=== PATIENT | female | born 1945 | race Caucasian/White ===

== ENCOUNTER 2018-04-12 15:05 | Inpatient (IN) | payer MEDICARE, BC ==
[2018-04-12 16:00] LABS: INR 0.91 (0.77-1.02)
[2018-04-12 16:04] LABS: Hematocrit 17 % (35-47); Hemoglobin 5.5 g/dl (12.0-16.0); Mean Corpuscular HGB Conc 33 g/dl (31-36); Mean Corpuscular Hemoglobin 32 pg (27-31); Mean Corpuscular Volume 97 fL (80-97); Mean Platelet Volume 7.7 um3 (7.4-10.4); Platelet Count 321 10^3/ul (150-450); Red Blood Count 1.74 10^6/ul (4.00-5.40); Red Cell Distribution Width 15 % (10.5-15); White Blood Count 6.9 10^3/ul (3.5-10.8)
[2018-04-12 16:11] LABS: EGFR Non-African American 58.9 (>60)
--- NOTE | 2018-04-12 16:29 | ED ---
GI/ HPI - HPI Summary HPI Summary: Pt is a 72 y/o female who presents to the ED c/o tarry stools. She states shes had intermittent rectal bleeding, but denies any red blood in her stool. 1 month ago she had an incidence of rectal bleeding for several days, which then stopped. She also c/o dyspnea upon exertion and voiding, palpitations, abdominal discomfort, and intermittent lightheadedness and dizziness. She notes the SOB is unusual since she hikes every day and is active. Pt denies any CP. Pt was at her PCP today, and had a hemoglobin level of 5.8. She denies ever having low hemoglobin before. PMHx hemorrhoids, which were operated on years ago. Her last colonoscopy was in July 2016, and she had a non-precancerous polyp. Pt also notes she had a blood test done for hereditary colon cancer, which was negative. No PMHx of HLD or HTN. FHx colon cancer. - History of Current Complaint Chief Complaint: EDGIBleed Time Seen by Provider: 04/12/18 15:50 Stated Complaint: ABNORMAL LABS Hx Obtained From: Patient Onset/Duration: Started Weeks Ago - 1 month ago, Still Present Timing: Intermittent Pain Intensity: 0 Location of Pain: Diffuse - Abdomen Associated Signs and Symptoms: Positive: External Hemorrhoid, Black Tarry Stool , Lightheadedness, Abdominal Pain. Negative: Blood-Streaked Stool, Bright Red Blood w/Stool, Blood w/Stool, Chest Pain Aggravating Factor(s): Voiding, Walking/Exertion Alleviating Factor(s): Nothing - Allergy/Home Medications Allergies/Adverse Reactions: Allergies Allergy/AdvReac Type Severity Reaction Status Date / Time ampicillin Allergy Intermediate Rash Verified 04/12/18 17:27 Home Medications: Home Medications Cholecalciferol (Vitamin D3) [Vitamin D3] 1,000 unit PO DAILY 04/12/18 [History Confirmed 04/12/18] Docusate CAP* [Colace Cap*] 100 mg PO DAILY PRN 04/12/18 [History Confirmed 05/20] Ena [place]/Linoleic/Gamoleni [Evening [place] 1,000 mg Sftg] 1,000 mg PO DAILY 04/12/18 [History Confirmed 04/12/18] Ginko/Horsechestnut Compound 40 drop PO BID 04/12/18 [History Confirmed 04/12/18 ] Glucosamine/D3/Boswellia Pauly [Glucosamine Complex] 1 tab PO DAILY 04/12/18 [ History Confirmed 04/12/18] Lutein [Natural Lutein] 20 mg PO DAILY 04/12/18 [History Confirmed 04/12/18] Melatonin 5 mg PO DAILY 04/12/18 [History Confirmed 04/12/18] Omeprazole CAP* [Prilosec CAP* 20 MG] 20 mg PO DAILY 04/12/18 [History Confirmed 04/12/18] Oregano Oil 1 liq TOPICAL QPM 04/12/18 [History Confirmed 04/12/18] Replenish Compound 30 drop PO BID 04/12/18 [History Confirmed 04/12/18] Vata Oil 1 applic TOPICAL BEDTIME 04/12/18 [History Confirmed 04/12/18] PMH/Surg Hx/FS Hx/Imm Hx Cardiovascular History: Reports: Other Cardiovascular Problems/Disorders - REYNAUD/S ONLY IN COLD TEMP Denies: Hx Hypercholesterolemia, Hx Hypertension Musculoskeletal History: Reports: Hx Arthritis - BILAT KNEES, Hx Scoliosis Sensory History: Reports: Hx Cataracts - BILAT, Hx Contacts or Glasses Denies: Hx Hearing Aid Opthamlomology History: Reports: Hx Cataracts - BILAT, Hx Contacts or Glasses - Cancer History Hx Chemotherapy: No Hx Radiation Therapy: No - Surgical History Surgery Procedure, Year, and Place: HEMORRHOIDECTOMY 1989 [facility] [place]. D&C 1989 [facility] [place]. LYMPH NODE BX 1955 R/T CAT SCRATCH FEVER. TONSILLECTOMY AND ADNOIDECTOMY 1951, [facility] Hx Anesthesia Reactions: No Infectious Disease History: Yes Infectious Disease History: Denies: Traveled Outside the [place] in Last 30 Days - Family History Known Family History: Positive: Other - Colon CA, breast CA, parkinson's - Social History Alcohol Use: Rare Hx Substance Use: No Substance Use Type: Reports: None Hx Tobacco Use: Yes Smoking Status (MU): Former Smoker Type: Cigarettes Review of Systems Positive: Palpitations. Negative: Chest Pain Positive: Shortness Of Breath - w/ exertion and voiding Positive: Abdominal Pain, Other - Black tarry stools, NEGATIVE: red blood w/ stool Neurological: Other - Lightheadedness, dizziness All Other Systems Reviewed And Are Negative: Yes Physical Exam - Summary Physical Exam Summary: GENERAL: Patient is a well-developed and nourished F who is lying comfortable in the stretcher. Patient is not in any acute respiratory distress. HEAD AND FACE: Normocephalic EYES: PERRLA, EOMI x 2. EARS: Hearing grossly intact. MOUTH: Oropharynx within normal limits. NECK: Supple, trachea is midline, no adenopathy, no JVD, no carotid bruit. CHEST: Symmetric, no tenderness at palpation LUNGS: Clear to auscultation bilaterally. No wheezing or crackles. CVS: Regular rate and rhythm, S1 and S2 present, no murmurs or gallops appreciated. ABDOMEN: Soft, non-tender. Bowel sounds are normal. No abdominal abnormal pulsations. EXTREMITIES: Full ROM in all major joints, no edema, no cyanosis or clubbing. NEURO: Alert and oriented x 3. No acute neurological deficits. Speech is normal and follows commands. SKIN: Dry and warm : external hemorrhoids, stool was brown without blood Triage Information Reviewed: Yes Vital Signs On Initial Exam: Initial Vitals Temp Pulse Resp BP Pulse Ox 98.4 F 92 18 144/58 100 04/12/18 15:04/12/18 15:09 04/12/18 15:09 04/12/18 15:09 04/12/18 15:09 Vital Signs Reviewed: Yes Diagnostics - Vital Signs Vital Signs Temp Pulse Resp BP Pulse Ox 04/12/18 15:09 98.4 F 92 18 144/58 100 - Laboratory Lab Results: Lab Results 04/12/18 04/12/18 04/12/18 Range/Units 15:40 15:40 15:40 WBC 6.9 (3.5-10.8) 10^3/ul RBC 1.74 L (4.00-5.40) 10^6/ul Hgb 5.5 L* (12.0-16.0) g/dl Hct 17 L (35-47) % MCV 97 (80-97) fL MCH 32 H (27-31) pg MCHC 33 (31-36) g/dl RDW 15 (10.5-15) % Plt Count 321 (150-450) 10^3/ul MPV 7.7 (7.4-10.4) um3 Neut % (Auto) Pending Lymph % (Auto) Pending [place] % (Auto) Pending Eos % (Auto) Pending Baso % (Auto) Pending Absolute Neuts (auto) Pending Absolute Lymphs (auto) Pending Absolute Monos (auto) Pending Absolute Eos (auto) Pending Absolute Basos (auto) Pending Absolute Nucleated RBC Pending Nucleated RBC % Pending INR (Anticoag Therapy) 0.91 (0.77-1.02) Sodium 140 (135-145) mmol/L Potassium 4.0 (3.5-5.0) mmol/L Chloride 109 (101-111) mmol/L Carbon Dioxide 24 (22-32) mmol/L Anion Gap 7 (2-11) mmol/L BUN 19 (6-24) mg/dL Creatinine 0.93 (0.51-0.95) mg/dL Est GFR ( Amer) 71.3 (>60) Est GFR (Non-Af Amer) 58.9 (>60) BUN/Creatinine Ratio 20.4 H (8-20) Glucose 128 H (70-100) mg/dL Calcium 8.8 (8.6-10.3) mg/dL Total Bilirubin 0.30 (0.2-1.0) mg/dL AST 24 (13-39) U/L ALT 14 (7-52) U/L Alkaline Phosphatase 38 (34-104) U/L Total Protein 6.1 L (6.4-8.9) g/dL Albumin 3.9 (3.2-5.2) g/dL Globulin 2.2 (2-4) g/dL Albumin/Globulin Ratio 1.8 (1-3) Result Diagrams: 04/13/18 09:36 04/13/18 05:53 Lab Statement: Any lab studies that have been ordered have been reviewed, and results considered in the medical decision making process. GIGU Course/Dx - Course Course Of Treatment: Pt is a 72 y/o female who presents to the ED c/o tarry stools. She states shes had intermittent rectal bleeding, but denies any red blood in her stool. 1 month ago she had an incidence of rectal bleeding for several days, which then stopped. She also c/o dyspnea upon exertion and voiding , palpitations, abdominal discomfort, and intermittent lightheadedness and dizziness. Pt denies any CP. Pt was at her PCP today, and had a hemoglobin level of 5.8. She denies ever having low hemoglobin before. PMHx hemorrhoids, which were operated on years ago. Her last colonoscopy was in July 2016, and she had a non-precancerous polyp. Pt also notes she had a blood test done for hereditary colon cancer, which was negative. FHx colon cancer. A rectal exam revealed external hemorrhoids, stool was brown without blood. Final dx is anemia. Dr. Mendes accepts pt for admission. - Diagnoses Provider Diagnoses: Anemia - Physician Notifications Discussed Care Of Patient With: Jocelin Mendes Time Discussed With Above Provider: 17:30 Instructed by Provider To: Admit As Inpatient Discharge - Sign-Out/Discharge Documenting (check all that apply): Patient Departure - Admit - Discharge Plan Condition: Stable Disposition: ADMITTED TO [facility] - Billing Disposition and Condition Condition: STABLE Disposition: Admitted to [facility] - Attestation Statements Document Initiated by Lamaribe: Yes Documenting Scribe: Rhonda Morgan Provider For Whom Lamaribe is Documenting (Include Credential): Raman Lemus MD Scribe Attestation: Rhonda Sotomayor, scribed for Raman Lemus MD on 04/13/18 at 1727. Scribe Documentation Reviewed: Yes Provider Attestation: The documentation as recorded by the Rhonda moreira accurately reflects the service I personally performed and the decisions made by , Raman Lemus MD
[2018-04-12 16:40] LABS: ABS Basophils 0.1 10^3/ul (0-0.2); ABS Eosinophils 0.2 10^3/ul (0-0.6); ABS Lymphocytes 1.2 10^3/ul (1.0-4.8); ABS Monocytes 0.6 10^3/ul (0-0.8); ABS Neutrophils 4.8 10^3/ul (1.5-7.7); ABS Nucleated RBC 0 10^3/ul; Eosinophil % 2.4 % (0-6); Lymphocyte % 17.3 % (25-47); Nucleated Red Blood Cells % 0
[2018-04-12] MEDS ORDERED: NS 0.9% 1000 ML* 1,000 ML IV SCH ×2 (17:30→18:23)
[2018-04-12] MEDS ORDERED: Pantoprazole IV* 40 MG IV ONE (17:55)
--- NOTE | 2018-04-12 19:18 | PN ---
Hospitalist Progress Note Date of Service: 04/12/[address] Bowens who will plan for upper endoscopy tomorrow. NPO after midnight.
[2018-04-12] MEDS: Pantoprazole IV* 80 MG in NS 0.9% 250 ML* 250 ML IVPB SCH (19:22)
--- NOTE | 2018-04-12 21:06 | HP ---
HISTORY AND PHYSICAL: DATE OF ADMISSION: 04/12/18 ATTENDING PHYSICIAN: Dr. Nguyễn * (report dictated by Abril Mahoney, JOE). PRIMARY CARE PROVIDER: Dr. South. CHIEF COMPLAINT: The patient sent by primary care office for anemia. HISTORY OF PRESENT ILLNESS: Ms. Fraser is a 72-year-old female with a past medical history of hemorrhoids and migraines, who presented to the emergency department by recommendation by her primary care provider after she had follow- up labs today for anemia. The patient went to have a followup lab as recommendation from her primary care provider to monitor her hemoglobin and hematocrit as last month around 03/12/18, she reported bright red blood per rectum and on her evaluation it was noted that most likely the source was hemorrhoidal bleeding. The recommendation was to have a followup CBC in a month in which she went to the lab today, had the followup CBC and was notified by her primary care provider when it returned to show a hemoglobin of 5.8 and a hematocrit of 18. She came to the emergency department. On recheck this afternoon, her hemoglobin is 5.5 with a hematocrit of 17. The patient reports that over the past month, she has had some bright red blood per rectum thinking that this was hemorrhoidal bleeding. She reports this to be intermittent and she also reported intermittent dark stools. She reported these dark stools to be formed and denied melena. She then reports over the past couple of weeks, this appears to have improved but approximately a week ago has increased in frequency with bright red blood per rectum as well as dark "smelly" stools. She also reports in the last several weeks she has had intermittent abdominal pain in her epigastric region mostly at night, reporting she felt that this was just normal abdominal pain and did not think much of it. She does report that she did have a stool over the weekend that did turn the toilet bowl water a dark red color. Her last stool was this morning at 7 a.m. which she reports as dark, black, soft, and formed and di not turn the toilet water red. She denies any emesis or nausea. She currently denies any abdominal pain. She denies upper GI bleed in the past, but does report she has had hemorrhoidal bleeding previously. She reports that over the past couple of weeks, she has had "extreme fatigue" and some increased shortness of breath with exertion. She denies chest pain. She denies dizziness at rest or with position change. She does report that her blood pressure has been on the lower side with systolic blood pressures around 115 and reports that she has noted that her heart rate on her Fitbit has been a little bit elevated in the low 100s. She reports that her normal heart rate is low 90s. Currently, she offers no complaints other than feeling very fatigued. Per the patient, she rarely has to see her primary care provider. She reports herself to be healthy. She reports she mostly takes ayurvedic supplementation and follows with the ayurvedic provider in [place], [place]. She reports that some of her herbal supplements are taken on an empty stomach. She denies any NSAID use. PAST MEDICAL HISTORY: 1. Ophthalmic migraine. 2. History of rectal bleeding in July 2016 in which she underwent a colonoscopy with biopsy removal of a distant rectal polyp. PAST SURGICAL HISTORY: Status post tonsillectomy. CURRENT MEDICATIONS: 1. bone/joint path-oil 2 drops topical q.p.m. 2. Vata Oil 1 application topical at bedtime. 3. Oregano Oil 1 liquid topical q.p.m. 4. Replenish Compound 30 drops p.o. b.i.d. 5. Ginkgo/Horse chestnut Compound 40 drops p.o. b.i.d. 6. Melatonin 5 mg p.o. daily. 7. Glucosamine/D3/Boswellia Pauly 1 tab p.o. daily. 8. Lutein 20 mg p.o. daily. 9. Evening [place] oil 1000 mg p.o. daily. 10. Vitamin D3 of 1000 units p.o. daily. 11. Colace 100 mg p.o. daily p.r.n. 12. Omeprazole 20 mg p.o. daily. ALLERGIES: AMPICILLIN. FAMILY HISTORY: Colon cancer. SOCIAL HISTORY: Denies history of tobacco abuse. No alcohol use. Currently lives at home with her , Mars Fraser, who is her healthcare proxy. His number is [phone]. REVIEW OF SYSTEMS: A 14-point review of systems was performed. All the pertinent positives and negatives are mentioned in the history of present illness. Otherwise, are negative. PHYSICAL EXAMINATION GENERAL APPEARANCE: A 72-year-old female, alert and oriented x3, appears pale, in no acute distress. VITAL SIGNS: Temperature 98.4, heart rate 92, respirations 18, O2 sat 100% on room air, blood pressure 144/58. HEENT: Head is normocephalic, atraumatic. Pupils are equal and reactive to light. Oropharynx is clear. Moist mucous membranes. NECK: Supple. LUNGS: Clear to auscultation bilaterally. Good aeration throughout. CARDIAC: S1, S2. Regular rate and rhythm. No murmur, rub, or gallop appreciated. No lower extremity edema noted. ABDOMEN: Soft, nontender, nondistended. Normal bowel sounds throughout. EXTREMITIES: Moves all extremities. Strength is 5/5 throughout. NEURO: Cranial nerves II through XII are grossly intact. No focal deficits noted. LABORATORY DATA AND DIAGNOSTIC STUDIES: WBC is 6.9, RBC 1.74, Hgb 5.4, Hct 17 , MCV 97, MCH 32, MCHC 33, RDW 15, platelet count 321,000. INR is 0.91. Sodium 140, potassium 4.0, chloride 109, carbon dioxide 24, anion gap 7, BUN 19 , creatinine 0.94, glucose 128, calcium 8.8. Total bilirubin 0.30. AST 24, ALT 14, alkaline phosphatase 38. Total protein 6.1, albumin 3.9. ASSESSMENT AND PLAN: Ms. Fraser is a 72-year-old female with no significant past medical history other than she did have lower GI bleeding in 2016 in which she underwent a colonoscopy and did have a polyp removed at that time. She presents today to the emergency department after routine followup blood work by her PCP for report of hemorrhoidal bright red blood bleeding as well as dark stool approximately a month ago, found to have a hemoglobin of 5.5 today. 1. GI bleed. The patient will be admitted to the hospitalist service to the telemetry. She is hemodynamically stable. Will place 2 large bore IVs. obtain orthostatic vital signs. Start normal saline at 125 mL an hour. The emergency room provider has already ordered 2 units of packed red blood cells. I will start the patient on a Protonix drip. Consult GI. N.p.o. after midnight with a potential upper endoscopy tomorrow. She can have clears this evening; however , I did discuss with the patient that it is possible the GI physician may want to do a colonoscopy as well. We will trend hemoglobin and hematocrit q.6 hours. Monitor on telemetry. I did discuss with the patient that it is possible that some of her herbal supplements taken on empty stomach possibly could cause a gastric ulcer and to hold off on restarting these medications until this is further investigated. 2. Borderline hypertension. The patient reports that her normal systolic blood pressure is around 140. It is noted that her blood pressure currently is 144/58. This should be monitored throughout the hospitalization. I did discuss with the patient that the goal for her blood pressure should be systolically under 130. 3. DVT prophylaxis. Hold in the setting of GI bleed. 4. Code status. Full code. 5. Hospital status. Observation to telemetry. TIME SPENT: Approximately 60 minutes were spent on this admission. ABRIL MAHONEY, JOE [id number]/CPS #: [id number] ROSA M
[2018-04-13 01:24] LABS: Hematocrit 23 % (35-47); Hemoglobin 7.6 g/dl (12.0-16.0)
[2018-04-13] MEDS: Pantoprazole IV* 80 MG in NS 0.9% 250 ML* 250 ML IVPB SCH ×2 (04:16→15:30)
[2018-04-13 06:18] LABS: ABS Basophils 0.1 10^3/ul (0-0.2); ABS Eosinophils 0.1 10^3/ul (0-0.6); ABS Monocytes 0.8 10^3/ul (0-0.8); ABS Neutrophils 6.7 10^3/ul (1.5-7.7); ABS Nucleated RBC 0 10^3/ul; Eosinophil % 1.3 % (0-6); Hematocrit 21 % (35-47); Hemoglobin 7.3 g/dl (12.0-16.0); Lymphocyte % 11.8 % (25-47); Mean Corpuscular HGB Conc 34 g/dl (31-36); Mean Corpuscular Hemoglobin 32 pg (27-31); Mean Corpuscular Volume 92 fL (80-97); Mean Platelet Volume 7.7 um3 (7.4-10.4); Nucleated Red Blood Cells % 0.1; Platelet Count 270 10^3/ul (150-450); Red Blood Count 2.31 10^6/ul (4.00-5.40); Red Cell Distribution Width 15 % (10.5-15); White Blood Count 8.7 10^3/ul (3.5-10.8)
[2018-04-13 06:32] LABS: EGFR Non-African American 68.1 (>60)
--- NOTE | 2018-04-13 07:48 | PN ---
Subjective - Subjective Reason for Note: Progress Note History: Radha Fraser presented with symptoms of anemia, hemorrhoidal bleeding and melena. I reviewed her presentation with the patient and with Mary Strauss NP's admitting history and physical. She has a strong FH of colon cancer (maternal grandmother, 3 siblings). She had a colon polyp removed by Dr. Wallace Bowens 2 years ago and he told her this was the last one she would require. She had hemorrhoids banded previously by Dr. Mcmahan. Recently, she had rectal bleeding and was found to be mildly anemic by Musa Prasad NP who referred her to Dr. Alcira Fabian for general surgery. Her report was she saw a small blood vessel at the base of an anal fissure, along with some external and internal hemorrhoids that looked benign. She though this was the source of the bleeding. She recommended conservative measures for anal fissure. Clearly, she continued to bleed and had bright red blood and some melena. She was symptomatic from anemia when she presented. She tolerated the 2 units of PRCBs and has no symptoms this morning - she has had no further anal bleeding. Active Problems: Active Problems Anal fissure (Acute) K60.2 Anemia (Acute) D64.9 Bleeding hemorrhoids (Acute) K64.9 Melena (Acute) K92.1 Family history of colon cancer (Chronic) Z80.0 Raynauds phenomenon (Chronic) I73.00 Current Medications: Current Medications Pantoprazole Sodium 80 mg/ (Sodium Chloride) 250 mls @ 25 mls/hr IVPB Q10H [facility] Last Admin: 04/13/18 04:16 Dose: 25 mls/hr Home Medications: Home Medications Medication Instructions Recorded Confirmed Type Kelsi Bone/Joint Path Oil 2 drop TOPICAL QPM /11/1604/12/18 History Cholecalciferol (Vitamin D3) 1,000 unit PO DAILY 04/12/18 04/12/18 History [Vitamin D3] Docusate CAP* [Colace Cap*] 100 mg PO DAILY PRN 04/12/18 04/12/18 History Ena [place]/Linoleic/Gamoleni 1,000 mg PO DAILY 04/12/18 04/12/18 History [Evening [place] 1,000 mg Sftg] Ginko/Horsechestnut Compound 40 drop PO BID 04/12/18 04/12/18 History Glucosamine/D3/Boswellia Pauly 1 tab PO DAILY 04/12/18 04/12/18 History [Glucosamine Complex] Lutein [Natural Lutein] 20 mg PO DAILY 04/12/18 04/12/18 History Melatonin 5 mg PO DAILY 04/12/18 04/12/18 History Omeprazole CAP* [Prilosec CAP* 20 20 mg PO DAILY 04/12/18 04/12/18 History MG] Oregano Oil 1 liq TOPICAL QPM 04/12/18 04/12/18 History Replenish Compound 30 drop PO BID 04/12/18 04/12/18 History Vata Oil 1 applic TOPICAL BEDTIME 04/12/18 04/12/18 History Allergies: Allergies Allergy/AdvReac Type Severity Reaction Status Date / Time ampicillin Allergy Intermediate Rash Verified 04/12/18 17:27 Objective - Vital Signs Vital Signs: Vital Signs 04/12/18 04/12/18 04/12/18 15:09 17:52 18:06 Temperature 98.4 F 98.7 F Pulse Rate 92 94 Respiratory 18 20 18 Rate Blood Pressure 144/58 114/67 (mmHg) O2 Sat by Pulse 100 100 Oximetry 04/12/18 04/12/18 04/12/18 18:35 18:45 18:54 Temperature 98.8 F 98.8 F Pulse Rate 99 97 97 Respiratory 18 16 16 Rate Blood Pressure 132/68 111/59 111/59 (mmHg) O2 Sat by Pulse 100 100 100 Oximetry 04/12/18 04/12/18 04/13/18 19:05 23:51 03:25 Temperature 98.3 F 98.5 F 98.8 F Pulse Rate 94 93 90 Respiratory 20 18 20 Rate Blood Pressure 125/52 122/61 145/54 (mmHg) O2 Sat by Pulse 93 96 100 Oximetry 04/13/18 03:30 Temperature Pulse Rate 90 Respiratory 24 Rate Blood Pressure 145/54 (mmHg) O2 Sat by Pulse 98 Oximetry - Intake and Output Intake and Output: Intake & Output 04/10/18 04/11/18 04/12/18 04/13/18 11:59 11:59 11:59 11:59 Intake Total 597 Balance 597 Weight 144 lb 3.2 oz Intake: IV Fluids 227 Oral 370 Other: Estimated Void Medium # Bowel Movements 1 Estimated Stool Amount Large # Voids 1 ADLs: Meal Record Start: 04/12/18 17: 52 Freq: DAILY@0900,1400,1800 Status: Active Protocol: Created 04/12/18 17:52 System (Rec: 04/12/18 17:52 System [id number]) Document 04/12/18 18:00 [id number] (Rec: 04/12/18 21:15 [id number]) Intake and Output Start: 04/12/18 15: 12 Freq: Status: Cancelled Protocol: Created 04/12/18 15:12 System (Rec: 04/12/18 15:12 System [id number]) Intake and Output Start: 04/12/18 17: 21 Freq: 06,14,2200 Status: Active Protocol: Created 04/12/18 17:21 [id number] (Rec: 04/12/18 17:21 BK [email or web address]) Document 04/12/18 22:00 [id number] (Rec: 04/12/18 22:54 [id number] TELE-C13) Document 04/13/18 06:00 [id number] (Rec: 04/13/18 06:35 [id number] TELE-C34) Intake and Output Start: 04/12/18 17: 52 Freq: DAILY@0600,1400,2200 Status: Active Protocol: Created 04/12/18 17:52 System (Rec: 04/12/18 17:52 System [email or web address]-C09) Document 04/12/18 22:00 [id number] (Rec: 04/12/18 22:54 [id number]-C13) - Physical Exam General: No Cyanosis, Yes Anemia, No Jaundice, No Clubbing Lungs and Chest: Yes: Chest Expansion Full, Chest Expansion Symetrica, Percussion Note Resonant, Vessicular Breath Sounds. No: Crackles, Wheezes, Respiratory Distress, Use of Accessory Muscles Heart Rate and Rhythm: Regular Additional Cardiovascular: Yes: Normal Heart Sounds. No: Heart Murmur, Pedal Edema Abdominal Exam: Yes: Soft, Bowel Sounds Present. No: Distention, Abdominal Mass , Hepatomegaly, Abdominal Tenderness, Guarding, Rebound Tenderness - Neuro Orientation: A/O x3 Speech: Normal Results - Results Lab Results: Laboratory Results - last 24 hr 04/12/18 04/12/18 04/12/18 15:40 15:40 15:40 WBC 6.9 RBC 1.74 L Hgb 5.5 L* Hct 17 L MCV 97 MCH 32 H MCHC 33 RDW 15 Plt Count 321 MPV 7.7 Neut % (Auto) 70.0 Lymph % (Auto) 17.3 L Garrett % (Auto) 9.0 H Eos % (Auto) 2.4 Baso % (Auto) 1.3 Absolute Neuts (auto) 4.8 Absolute Lymphs (auto) 1.2 Absolute Monos (auto) 0.6 Absolute Eos (auto) 0.2 Absolute Basos (auto) 0.1 Absolute Nucleated RBC 0 Nucleated RBC % 0 INR (Anticoag Therapy) 0.91 Sodium 140 Potassium 4.0 Chloride 109 Carbon Dioxide 24 Anion Gap 7 BUN 19 Creatinine 0.93 Est GFR ( Amer) 71.3 Est GFR (Non-Af Amer) 58.9 BUN/Creatinine Ratio 20.4 H Glucose 128 H Calcium 8.8 Total Bilirubin 0.30 AST 24 ALT 14 Alkaline Phosphatase 38 Total Protein 6.1 L Albumin 3.9 Globulin 2.2 Albumin/Globulin Ratio 1.8 Blood Type Antibody Screen Crossmatch 04/12/18 04/13/18 04/13/18 15:43 01:17 05:53 WBC 8.7 RBC 2.31 L Hgb 7.6 L 7.3 L Hct 23 L 21 L MCV 92 MCH 32 H MCHC 34 RDW 15 Plt Count 270 MPV 7.7 Neut % (Auto) 77.2 Lymph % (Auto) 11.8 L Garrett % (Auto) 9.0 H Eos % (Auto) 1.3 Baso % (Auto) 0.7 Absolute Neuts (auto) 6.7 Absolute Lymphs (auto) 1.0 Absolute Monos (auto) 0.8 Absolute Eos (auto) 0.1 Absolute Basos (auto) 0.1 Absolute Nucleated RBC 0 Nucleated RBC % 0.1 INR (Anticoag Therapy) Sodium Potassium Chloride Carbon Dioxide Anion Gap BUN Creatinine Est GFR ( Amer) Est GFR (Non-Af Amer) BUN/Creatinine Ratio Glucose Calcium Total Bilirubin AST ALT Alkaline Phosphatase Total Protein Albumin Globulin Albumin/Globulin Ratio Blood Type A Positive Antibody Screen Negative Crossmatch See Detail 04/13/18 05:53 WBC RBC Hgb Hct MCV MCH MCHC RDW Plt Count MPV Neut % (Auto) Lymph % (Auto) Garrett % (Auto) Eos % (Auto) Baso % (Auto) Absolute Neuts (auto) Absolute Lymphs (auto) Absolute Monos (auto) Absolute Eos (auto) Absolute Basos (auto) Absolute Nucleated RBC Nucleated RBC % INR (Anticoag Therapy) Sodium 140 Potassium 3.9 Chloride 111 Carbon Dioxide 24 Anion Gap 5 BUN 13 Creatinine 0.82 Est GFR ( Amer) 82.5 Est GFR (Non-Af Amer) 68.1 BUN/Creatinine Ratio 15.9 Glucose 104 H Calcium 8.3 L Total Bilirubin AST ALT Alkaline Phosphatase Total Protein Albumin Globulin Albumin/Globulin Ratio Blood Type Antibody Screen Crossmatch Assessment - Problem List Assessment: Patient Problems Anal fissure (Acute) Anemia (Acute) Bleeding hemorrhoids (Acute) Melena (Acute) Family history of colon cancer (Chronic) Raynauds phenomenon (Chronic) Plan: Anal fissure (Acute)/Bleeding hemorrhoids (Acute) -It is not clear to me if this degree of hemorrhage is all secondary to hemorrhoidal or anal fissure bleeding. This certainly can happen. However, we should evaluate this carefully. I am going to ask for a general surgical opinion for the rectal area. Melena (Acute) She is scheduled for an EGD to ensure she is not coincidentally bleeding from an upper GI source to cause what may be melena Anemia (Acute) She remains anemic after 2 units PRBCs. I will check her ED blood work for ferritin/iron panel. She may require an iron infusion or even further transfusions. Family history of colon cancer (Chronic) Her mother is well at 101 years, but other members of her family have had this. She has been worked up by Dr. Gibbs, but nothing was found. I will obtain the report from Dr. Gibbs Raynauds phenomenon (Chronic) secondary diagnosis. I discussed the above with the patient. She doesn't want either further transfusion or an iron infusion until we have some further clarity for the cause of her bleeding or if her hemoglobin goes down again from further bleeding.
[2018-04-13 10:08] LABS: Hematocrit 21 % (35-47); Hemoglobin 7.2 g/dl (12.0-16.0)
[2018-04-13] MEDS ORDERED: fentaNYL* 50 MCG/ML 2 ML VIAL (100 MCG VIAL) ONE (12:59)
[2018-04-13] MEDS ORDERED: Midazolam* 1 MG/ML 10 ML VIAL (10 MG) ONE (12:59)
[2018-04-13] MEDS ORDERED: PEG 3000 GI LAVAGE* 1 GALLON PO ONE (16:00)
--- NOTE | 2018-04-13 19:06 | CONS ---
GASTROENTEROLOGY CONSULT: DATE: 04/13/18 CONSULTING PHYSICIAN: Mukesh Alvarado. REASON FOR CONSULT: Hemoglobin of 5.3, MCV 97, platelets 321 in a woman who has been passing either black material or dark bloody stool sporadically over the last 6 to 7 weeks. She states she last felt well about 3 weeks ago, but actually references that 6 weeks ago, she suddenly developed bleeding from the rectum where she was seeing dark clotted material, but also passing black material, even after 3 to 4 days and at the end of that, she saw mid-level provider in Dr. South's office. At that time, she was feeling okay. Nothing happened for a month and then, she has more bleeding around 04/04/18. She began to feel tired when walking. She likes to hike on trails. She had had a hemorrhoidectomy 30 years ago and therefore saw Dr. Fabian in consultation 3 wks ago who diagnosed an anal fissure which was healing. She had a followup blood count yesterday and this showed hemoglobin of 5.4 and she was therefore summoned to the hospital. Indirectly asking about omeprazole, which is listed as one of her medicines, it comes out that she has been having a burning abdominal distress at night for a couple of months. She had tried Pepto-Bismol for it without success and Tums and then borrowed her 's omeprazole 2 nights running thinking it was a little bit helpful. It is not one of her prescribed medications. She denies taking any prescription medicines for her stomach ever. She was puzzled about my question regarding migraine (on her problem list) and then her reminds her that her "sparkles" are migraines. She had a colonoscopy with a good prep 07/30/16. She takes lots of supplements. PAST MEDICAL HISTORY: 1. Ophthalmic migraine. 2. History of hemorrhoids. 3. History of tonsillectomy. MEDICATIONS: About a dozen supplements and apparently nothing via prescription. She does take Colace. ALLERGIES: AMPICILLIN. FAMILY HISTORY: Colon cancer. 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 She is an active hiker. REVIEW OF SYSTEMS: No history of IN, arrhythmias, syncope, TB, hepatitis, jaundice, renal stones, hematuria, CVA, seizures. PHYSICAL EXAM: She is a pale, older woman, in no distress, stating she has no abdominal pain at this time. HEENT exam shows no icterus. She has no adenopathy. Her lungs are clear and heart sounds are regular. The abdomen is symmetric, soft, and nontender. Extremities showed no edema. Rectal deferred. LABORATORY DATA: On admission, hemoglobin 5.4, hematocrit 17, MCV 97, platelets 321. INR 0.91. BUN 19, creatinine 0.94. ALT 14, alkaline phosphatase 38, albumin 3.9. IMPRESSION: This 72-year-old woman has a history of a month or two of intermittent bleeding, which is described mostly as red blood, passed in a fashion that she assumed was hemorrhoidal and now has a subacute severe normochromic anemia. She, however, has upper abdominal pain, which seemed to respond to omeprazole and also passes black stools and had a colonoscopy 20 months ago with a good prep that was essentially normal. Upper endoscopy will proceed first. [id number]/[facility] #: [id number] [facility]PITALAlvina
[2018-04-13 21:13] LABS: Hematocrit 25 % (35-47); Hemoglobin 8.2 g/dl (12.0-16.0)
--- NOTE | 2018-04-14 00:15 | PRO ---
DATE: 04/13/18 - ROOM #446 REFERRING PHYSICIAN: Mukesh South.* PROCEDURE: Upper gastrointestinal endoscopy and flexible sigmoidoscopy. INDICATION: This 72-year-old woman has noted blood in her stool or black stool. She felt weak and came to the emergency room, and hemoglobin was 5.4, MCV 97. Overnight, she was transfused 2 units. She had a normal appearing stool yesterday with no blood and then today said she had a "enormous normal appearing bowel movement." It was brown, nonpainful and without any blood. BUN was 17 on admission. ENDOSCOPIST: Dr. Bowens. MEDICATIONS: Midazolam 4, fentanyl 25. FINDINGS: She was positioned on her side, and was comfortable and conscious sedation administered in incremental doses. She tolerated the exam very well, and her vitals remained stable. EGD: Larynx - limited views, symmetric. Esophagus - easily entered. The mucosa is normal in the upper, mid, and lower esophagus with the EG junction little bit loose at 40. There were no Dunbar's changes, erosions, or scars and no fundic prolapse. Stomach - generally normal mucosa in the cardia, fundus, body, and antrum. There were no chronic changes or scarring. Duodenum - the pylorus, bulb, and second through fourth portions appear normal. FLEXIBLE SIGMOIDOSCOPY: Digital rectal is unremarkable. External inspection is normal. The adult scope viewed brown formed stool in the rectum and up to the rectosigmoid. 80% to 90% of the rectal surface was seen and was normal. Retroflexion showed some slightly prominent vessels, but they were normal and clearly there were no major bulging hemorrhoids. There were no polyps. The scar from prior hemorrhoidectomy seen. The scope was then advanced through the distal mid and upper sigmoid to about 50 cm. There was no bleeding and the mucosa appeared normal. Diverticulosis if any was minimal. IMPRESSION: 1. Normal EGD. 2. Normal flexible sigmoidoscopy, and the scar from prior hemorrhoidectomy. 3. Anemia and gastrointestinal bleeding - source unclear and she will be prepped for colonoscopy. [id number]/[facility] #: [id number] [facility]
[2018-04-14] MEDS: Pantoprazole IV* 80 MG in NS 0.9% 250 ML* 250 ML IVPB SCH ×2 (03:06→11:26)
--- NOTE | 2018-04-14 08:09 | PN ---
Subjective - Subjective Reason for Note: Progress Note History: She is currently having a colon prep and is passing clear fluid without any blood. She has no blood in her stool. She is concerned about ovarian cancer as she has a strong family history and wonders about her abdomen being more distended. She is in no pain. Active Problems: Active Problems Anal fissure (Acute) K60.2 Anemia (Acute) D64.9 Bleeding hemorrhoids (Acute) K64.9 Melena (Acute) K92.1 Family history of colon cancer (Chronic) Z80.0 Family history of ovarian cancer (Chronic) Z80.41 Raynauds phenomenon (Chronic) I73.00 Current Medications: Current Medications Pantoprazole Sodium 80 mg/ (Sodium Chloride) 250 mls @ 25 mls/hr IVPB Q10H [facility] Last Admin: 04/14/18 03:06 Dose: Not Given Lactated Ringer's (Lactated Ringers 1000 Ml Bag*) 1,000 mls @ 75 mls/hr IV PER RATE [facility] Last Admin: 04/13/18 08:43 Dose: 75 mls/hr Home Medications: Home Medications Medication Instructions Recorded Confirmed Type Kelsi Bone/Joint Path Oil 2 drop TOPICAL QPM 12/05/15 04/12/18 History Cholecalciferol (Vitamin D3) 1,000 unit PO DAILY 04/12/18 04/12/18 History [Vitamin D3] Docusate CAP* [Colace Cap*] 100 mg PO DAILY PRN 04/12/18 04/12/18 History Ena [place]/Linoleic/Gamoleni 1,000 mg PO DAILY 04/12/18 04/12/18 History [Evening [place] 1,000 mg Sftg] Ginko/Horsechestnut Compound 40 drop PO BID 04/12/18 04/12/18 History Glucosamine/D3/Boswellia Pauly 1 tab PO DAILY 04/12/18 04/12/18 History [Glucosamine Complex] Lutein [Natural Lutein] 20 mg PO DAILY 04/12/18 04/12/18 History Melatonin 5 mg PO DAILY 04/12/18 04/12/18 History Omeprazole CAP* [Prilosec CAP* 20 20 mg PO DAILY 04/12/18 04/12/18 History MG] Oregano Oil 1 liq TOPICAL QPM 04/12/18 04/12/18 History Replenish Compound 30 drop PO BID 04/12/18 04/12/18 History Vata Oil 1 applic TOPICAL BEDTIME 04/12/18 04/12/18 History Allergies: Allergies Allergy/AdvReac Type Severity Reaction Status Date / Time ampicillin Allergy Intermediate Rash Verified 04/12/18 17:27 Objective - Vital Signs Vital Signs: Vital Signs 04/13/18 04/13/18 04/13/18 11:43 16:09 19:18 Temperature 98.2 F 98.1 F Pulse Rate 88 75 85 Respiratory 19 20 18 Rate Blood Pressure 128/68 117/71 138/71 (mmHg) O2 Sat by Pulse 97 96 96 Oximetry 04/13/18 04/14/18 04/14/18 20:00 00:03 01:46 Temperature 98.9 F Pulse Rate 81 Respiratory 18 20 Rate Blood Pressure 136/71 (mmHg) O2 Sat by Pulse 100 96 Oximetry 04/14/18 03:20 Temperature 98.7 F Pulse Rate 83 Respiratory 20 Rate Blood Pressure 131/72 (mmHg) O2 Sat by Pulse 94 Oximetry - Intake and Output Intake and Output: Intake & Output 04/11/18 04/12/18 04/13/18 04/14/18 11:59 11:59 11:59 11:59 Intake Total 597 300 Output Total 300 Balance 597 0 Weight 144 lb 3.2 oz 141 lb 3.2 oz Intake: IV Fluids 227 225 IVPB 75 Oral 370 0 Output: Urine 300 Other: Estimated Void Medium # Bowel Movements 1 0 Estimated Stool Amount Large # Voids 1 ADLs: Meal Record Start: 04/12/18 17: 52 Freq: DAILY@0900,1400,1800 Status: Active Protocol: Created 04/12/18 17:52 System (Rec: 04/12/18 17:52 System [email or web address]) Document 04/12/18 18:00 [id number] (Rec: 04/12/18 21:15 [id number] TELE-C13) Document 04/13/18 09:00 [id number] (Rec: 04/13/18 10:53 [id number] TELE-C01) Document 04/13/18 14:00 [id number] (Rec: 04/13/18 15:10 [id number] TELE-C05) Document 04/13/18 20:45 [id number] (Rec: 04/13/18 20:45 [id number] TELE-C01) Intake and Output Start: 04/12/18 15: 12 Freq: Status: Cancelled Protocol: Created 04/12/18 15:12 System (Rec: 04/12/18 15:12 System [id number]) Intake and Output Start: 04/12/18 17: 21 Freq: 06,14,2200 Status: Active Protocol: Created 04/12/18 17:21 [id number] (Rec: 04/12/18 17:21 BKG [id number]) Document 04/12/18 22:00 [id number] (Rec: 04/12/18 22:54 [id number] TELE-C13) Document 04/13/18 06:00 [id number] (Rec: 04/13/18 06:35 [id number] TELE-C34) Document 04/13/18 14:00 [id number] (Rec: 04/13/18 15:10 [id number] TELE-C05) Document 04/13/18 21:56 [id number] (Rec: 04/13/18 21:56 [id number] TELE-C01) Document 04/14/18 06:00 [id number] (Rec: 04/14/18 06:21 [id number] TELE-C34) Intake and Output Start: 04/12/18 17: 52 Freq: DAILY@0600,1400,2200 Status: Active Protocol: Created 04/12/18 17:52 System (Rec: 04/12/18 17:52 System TELE-C09) Document 04/12/18 22:00 [id number] (Rec: 04/12/18 22:54 [id number] TELE-C13) - Physical Exam General Physical Exam Comment: Warm and well perfused, in acute distress, hemodynamically stable General: No Cyanosis, Yes Anemia, No Jaundice, No Clubbing Lungs and Chest: Yes: Chest Expansion Full, Chest Expansion Symetrica, Percussion Note Resonant, Vessicular Breath Sounds. No: Crackles, Wheezes Heart Rate and Rhythm: Regular Additional Cardiovascular: Yes: Normal Heart Sounds. No: Heart Murmur, Pedal Edema Abdominal Exam: Yes: Soft, Bowel Sounds Present. No: Distention - No evidence of ascites., Abdominal Mass, Hepatomegaly, Abdominal Tenderness, Guarding, Rebound Tenderness Results - Results Lab Results: Laboratory Results - last 24 hr 04/12/18 04/12/18 04/13/18 15:40 15:43 09:36 Hgb 7.2 L Hct 21 L Sodium 140 Potassium 4.0 Chloride 109 Carbon Dioxide 24 Anion Gap 7 BUN 19 Creatinine 0.93 Est GFR ( Amer) 71.3 Est GFR (Non-Af Amer) 58.9 BUN/Creatinine Ratio 20.4 H Glucose 128 H Calcium 8.8 Iron TNP TIBC 426 % Saturation TNP Unsat Iron Binding TNP Transferrin 304 Ferritin 18.9 Total Bilirubin 0.30 AST 24 ALT 14 Alkaline Phosphatase 38 Total Protein 6.1 L Albumin 3.9 Globulin 2.2 Albumin/Globulin Ratio 1.8 Blood Type A Positive Antibody Screen Negative Crossmatch See Detail 04/13/18 04/13/18 09:36 21:00 Hgb 8.2 L Hct 25 L Sodium Potassium Chloride Carbon Dioxide Anion Gap BUN Creatinine Est GFR ( Amer) Est GFR (Non-Af Amer) BUN/Creatinine Ratio Glucose Calcium Iron 54 TIBC % Saturation Unsat Iron Binding Transferrin Ferritin Total Bilirubin AST ALT Alkaline Phosphatase Total Protein Albumin Globulin Albumin/Globulin Ratio Blood Type Antibody Screen Crossmatch Assessment - Problem List Assessment: Patient Problems Anal fissure (Acute) Anemia (Acute) Bleeding hemorrhoids (Acute) Melena (Acute) Family history of colon cancer (Chronic) Family history of ovarian cancer (Chronic) Raynauds phenomenon (Chronic) Plan: Anal fissure (Acute) Bleeding hemorrhoids (Acute) Melena (Acute) I reviewed Dr. Wallace Bowens's consultation and procedure note. There is no clear site of bleeding at present. He wishes to complete the endoscopy series with a colonoscopy today. Since there was no increase of her BUN it is likely that this bleeding is distal to the duodenum. She could have bleeding from an AVM in the small intestine Anemia (Acute) Her hemoglobin/hematocrit are stable Family history of colon cancer (Chronic) Dr. Wallace Bowens is being very cautious here. Family history of ovarian cancer (Chronic) She is anxious about this, I will check her CA125 for reassureance Raynauds phenomenon (Chronic) I discussed the above with the patient and her . She agrees with this management plan.
[2018-04-14] MEDS ORDERED: fentaNYL* 50 MCG/ML 2 ML VIAL (100 MCG VIAL) ONE (12:17)
[2018-04-14] MEDS ORDERED: Midazolam* 1 MG/ML 10 ML VIAL (10 MG) ONE (12:17)
[2018-04-14] MEDS ORDERED: Pantoprazole IV* 80 MG in NS 0.9% 250 ML* 250 ML IVPB SCH (15:00)
[2018-04-15 07:35] LABS: EGFR Non-African American 58.2 (>60)
--- NOTE | 2018-04-15 07:43 | PN ---
Subjective - Subjective Reason for Note: Discharge Note History: Contingent discharge short summary She has had no BM since her colonoscopy - though feels she will pass stool after her breakfast. She had O2 saturations in the low 90% range. She has mild dyspnea. She denies any pain or other distress Active Problems: Active Problems Anal fissure (Acute) K60.2 Anemia (Acute) D64.9 Bleeding hemorrhoids (Acute) K64.9 Melena (Acute) K92.1 Family history of colon cancer (Chronic) Z80.0 Family history of ovarian cancer (Chronic) Z80.41 Raynauds phenomenon (Chronic) I73.00 Home Medications: Home Medications Medication Instructions Recorded Confirmed Type Kelsi Bone/Joint Path Oil 2 drop TOPICAL QPM 12/05/15 04/12/18 History Cholecalciferol (Vitamin D3) 1,000 unit PO DAILY 04/12/18 04/12/18 History [Vitamin D3] Docusate CAP* [Colace Cap*] 100 mg PO DAILY PRN 04/12/18 04/12/18 History Ena Elizabeth/Linoleic/Gamoleni 1,000 mg PO DAILY 04/12/18 04/12/18 History [Evening Elizabeth 1,000 mg Sftg] Ginko/Horsechestnut Compound 40 drop PO BID 04/12/18 04/12/18 History Glucosamine/D3/Boswellia Pauly 1 tab PO DAILY 04/12/18 04/12/18 History [Glucosamine Complex] Lutein [Natural Lutein] 20 mg PO DAILY 04/12/18 04/12/18 History Melatonin 5 mg PO DAILY 04/12/18 04/12/18 History Omeprazole CAP* [Prilosec CAP* 20 20 mg PO DAILY 04/12/18 04/12/18 History MG] Oregano Oil 1 liq TOPICAL QPM 04/12/18 04/12/18 History Replenish Compound 30 drop PO BID 04/12/18 04/12/18 History Vata Oil 1 applic TOPICAL BEDTIME 04/12/18 04/12/18 History Allergies: Allergies Allergy/AdvReac Type Severity Reaction Status Date / Time ampicillin Allergy Intermediate Rash Verified 04/12/18 17:27 Objective - Vital Signs Vital Signs: Vital Signs 04/14/18 04/14/18 04/14/18 07:53 09:18 11:42 Temperature 98.1 F Pulse Rate 81 85 Respiratory 20 16 Rate Blood Pressure 132/73 (mmHg) O2 Sat by Pulse 100 93 Oximetry 04/14/18 04/14/18 04/14/18 14:01 14:11 15:32 Temperature 97.6 F 97.6 F 99.1 F Pulse Rate 82 82 86 Respiratory 16 16 Rate Blood Pressure 132/66 132/66 105/39 (mmHg) O2 Sat by Pulse 91 91 Oximetry 04/14/18 04/14/18 04/14/18 17:07 17:13 17:22 Temperature Pulse Rate 86 86 86 Respiratory 16 Rate Blood Pressure 115/65 (mmHg) O2 Sat by Pulse 91 90 95 Oximetry 04/14/18 04/14/18 04/14/18 19:30 19:32 23:24 Temperature 99.2 F 99.3 F Pulse Rate 95 89 Respiratory 16 16 20 Rate Blood Pressure 122/60 120/76 (mmHg) O2 Sat by Pulse 92 92 Oximetry 04/15/18 03:23 Temperature 99.1 F Pulse Rate 84 Respiratory 20 Rate Blood Pressure 133/77 (mmHg) O2 Sat by Pulse 90 Oximetry - Intake and Output Intake and Output: Intake & Output 04/12/18 04/13/18 04/14/18 04/15/18 11:59 11:59 11:59 11:59 Intake Total 597 300 360 Output Total 1000 900 Balance 597 -700 -540 Weight 144 lb 3.2 oz 141 lb 3.2 oz 142 lb 9.6 oz Intake: IV Fluids 227 225 IVPB 75 Oral 370 0 360 Output: Urine 1000 900 Other: Estimated Void Medium Medium # Bowel Movements 1 0 0 Estimated Stool Amount Large Medium # Voids 1 2 ADLs: Meal Record Start: 04/12/18 17: 52 Freq: DAILY@0900,1400,1800 Status: Active Protocol: Created 04/12/18 17:52 System (Rec: 04/12/18 17:52 System [id number]-C09) Document 04/12/18 18:00 [id number] (Rec: 04/12/18 21:15 [id number] TELE-C13) Document 04/13/18 09:00 [id number] (Rec: 04/13/18 10:53 [id number] TELE-C01) Document 04/13/18 14:00 [id number] (Rec: 04/13/18 15:10 [id number] TELE-C05) Document 04/13/18 20:45 [id number] (Rec: 04/13/18 20:45 CPZ0710 TELE-C01) Document 04/14/18 14:00 [id number] (Rec: 04/14/18 14:43 [id number] TELE-C01) Document 04/14/18 18:09 [id number] (Rec: 04/14/18 18:09 ISX0192 TELE-C01) Intake and Output Start: 04/12/18 15: 12 Freq: Status: Cancelled Protocol: Created 04/12/18 15:12 System (Rec: 04/12/18 15:12 System ED-C24) Intake and Output Start: 04/12/18 17: 21 Freq: 06,14,2200 Status: Active Protocol: Created 04/12/18 17:21 [id number] (Rec: 04/12/18 17:21 [facility]-[id number]) Document 04/12/18 22:00 [id number] (Rec: 04/12/18 22:54 [id number] TELE-C13) Document 04/13/18 06:00 ESL1312 (Rec: 04/13/18 06:35 IMI9730 TELE-C34) Document 04/13/18 14:00 [id number] (Rec: 04/13/18 15:10 TTW4993 TELE-C05) Document 04/13/18 21:56 [id number] (Rec: 04/13/18 21:56 BPK0237 TELE-C01) Document 04/14/18 06:00 [id number] (Rec: 04/14/18 06:21 [id number] TELE-C34) Document 04/14/18 08:00 NLC2254 (Rec: 04/14/18 12:18 LOJ2422 TELE-C03) Document 04/14/18 10:32 [id number] (Rec: 04/14/18 12:18 MRX2625 TELE-C03) Document 04/14/18 14:00 MBR0592 (Rec: 04/14/18 14:43 EWW6581 TELE-C01) Document 04/14/18 17:01 [id number] (Rec: 04/14/18 17:01 LHO1255 TELE-C01) Document 04/14/18 21:19 [id number] (Rec: 04/14/18 21:20 JUX7202 TELE-C03) Document 04/15/18 06:00 IRE2356 (Rec: 04/15/18 06:20 [id number] TELE-C34) Intake and Output Start: 04/12/18 17: 52 Freq: DAILY@0600,1400,2200 Status: Active Protocol: Created 04/12/18 17:52 System (Rec: 04/12/18 17:52 System TELE-C09) Document 04/12/18 22:00 [id number] (Rec: 04/12/18 22:54 [id number] TELE-C13) - Physical Exam General Physical Exam Comment: warm and well perfused. Pale General: No Cyanosis, Yes Anemia, No Jaundice, No Clubbing Lungs and Chest: Yes: Chest Expansion Full, Chest Expansion Symetrica, Percussion Note Resonant, Vessicular Breath Sounds, Crackles - a few fine crackles bases. No: Wheezes, Respiratory Distress Heart Rate and Rhythm: Regular Additional Cardiovascular: Yes: Normal Heart Sounds. No: Heart Murmur, Pedal Edema Abdominal Exam: Yes: Soft, Bowel Sounds Present. No: Distention, Abdominal Mass , Hepatomegaly, Abdominal Tenderness Results - Results Lab Results: Laboratory Results - last 24 hr 04/15/18 06:24 Sodium 139 Potassium 4.4 Chloride 106 Carbon Dioxide 26 Anion Gap 7 BUN 11 Creatinine 0.94 Est GFR ( Amer) 70.4 Est GFR (Non-Af Amer) 58.2 BUN/Creatinine Ratio 11.7 Glucose 114 H Calcium 8.7 Assessment - Problem List Assessment: Patient Problems Anal fissure (Acute) Anemia (Acute) Bleeding hemorrhoids (Acute) Melena (Acute) Family history of colon cancer (Chronic) Family history of ovarian cancer (Chronic) Raynauds phenomenon (Chronic) Plan: Anal fissure (Acute) This is not apparent on Dr. Bowens's examination Anemia (Acute) I will repeat her CBC t his morning Bleeding hemorrhoids (Acute) This doesn't appear to the source of bleeding Melena (Acute) Dr. Bowens found an AVM distal ileum on colonscopy - he cauterized this. However, this is probably not the source of the hemorrhage. The actual source hasn't been identified - she may have an small intestinal AVM/ angiodyplasia Family history of colon cancer (Chronic) Family history of ovarian cancer ( Chronic) pending investigations Raynauds phenomenon (Chronic) Dyspnea/borderline O2 saturation: She may have some volume overload. I will give her some furosemide and check a BMP I will discharge her if she has not dropped her H and H and if she has negative fecal occult blood. I discussed this with the patient.
[2018-04-15] MEDS ORDERED: Furosemide TAB* 20 MG PO ONE (07:44)
[2018-04-15 08:26] LABS: ABS Basophils 0.1 10^3/ul (0-0.2); ABS Eosinophils 0.1 10^3/ul (0-0.6); ABS Lymphocytes 0.8 10^3/ul (1.0-4.8); ABS Neutrophils 7.3 10^3/ul (1.5-7.7); ABS Nucleated RBC 0 10^3/ul; Eosinophil % 1.6 % (0-6); Hematocrit 23 % (35-47); Hemoglobin 7.8 g/dl (12.0-16.0); Lymphocyte % 8.1 % (25-47); Mean Corpuscular HGB Conc 34 g/dl (31-36); Mean Corpuscular Hemoglobin 31 pg (27-31); Mean Corpuscular Volume 92 fL (80-97); Mean Platelet Volume 8.2 um3 (7.4-10.4); Nucleated Red Blood Cells % 0.1; Platelet Count 319 10^3/ul (150-450); Red Blood Count 2.47 10^6/ul (4.00-5.40); Red Cell Distribution Width 14 % (10.5-15); White Blood Count 9.2 10^3/ul (3.5-10.8)
--- NOTE | 2018-04-15 10:22 | PRO ---
DATE: 04/14/18 - ROOM #[id number] REFERRING PHYSICIAN: Mukesh South.* PROCEDURE: Colonoscopy to cecum with removal of cecal cap, 3 mm polyp via biopsy, BICAP hemostasis of hepatic flexure area, erythematous patch consistent with low risk AVM. INDICATION: This 72-year-old woman reported intermittent bleeding, both bright and dark red and periods with black material in her bowels over a month or more. She was admitted when a previously planned followup CBC was done and her hemoglobin was 5.4, MCV 97. Since admission, she has not had any gastrointestinal symptoms and had a large formed brown stool spontaneously on the morning after admission. Upper endoscopy yesterday did not show an explanation for bleeding and flexible sigmoidoscopy showed formed brown stool in the absence of any hemorrhoids. She tolerated her prep well. Informed consent was obtained. ENDOSCOPIST: Dr. Bowens. MEDICATIONS: Midazolam 4, fentanyl 50. FINDINGS: She is a pale older woman, in no distress. Her abdomen is soft, nontender. Perianal inspection and rectal are normal. She is positioned on her side and conscious sedation induced by titrated doses. She was comfortable. The adult scope was inserted and encountered an excellent prep. Sigmoid colon and descending were very loopy and redundant. The patient was rolled supine. Hand checks were helpful. Transverse had several additional flexures and passage was quite difficult. The cecum was eventually reached. During insertion, an erythematous patch was seen near the estimated hepatic flexure before the scope had passed that area. It was clearly not suction trauma. The cecal cap was lavaged clear. A small polypoid nodule was removed with biopsy forceps. Attempts to enter the ileocecal valve were unsuccessful and with the redundancy, that was not surprising. During the withdrawal phase, the erythematous area at the hepatic flexure was BICAP treated with 20 blanton. Further withdrawal views showed no other abnormality. Rectal retroflexion was normal. IMPRESSION: 1. Difficult colonoscopy. 2. 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 3. Cecal cap polyp - removed, but not a culprit lesion. 4. Gastrointestinal bleeding - she will be observed, placed on low dose iron, possibly ferrous sulfate 65 mg every other day and alternate day of multivitamin and follow up further Hemoccult testing. Assessment of the small bowel is likely to be done. Addendum: cecal hyperplastic f/u depends on clinical course [id number]/[facility] #: [id number] [facility]
[2018-04-15] MEDS ORDERED: Iodixanol* (CONTRAST) 320 MG/ML 100 ML SDV IV ONE (12:36)
[2018-04-15 13:01] VITALS: BP 120/68
--- NOTE | 2018-04-15 13:20 | RAD ---
INDICATION: Shortness of breath, possible PE. COMPARISON: There are no relevant prior studies available for comparison. TECHNIQUE: A CT angiogram of the chest was performed with intravenous following intravenous injection of 67 ml of Visipaque 320 nonionic contrast. Contiguous axial sections were obtained from the lung apices through the lung bases. Images were reconstructed in the coronal and sagittal planes. FINDINGS: PULMONARY ARTERIES: The exam is slightly limited due to streak and motion artifact. No intraluminal filling defect or pulmonary embolism is seen. LUNGS: There is prominence of the interstitial markings, thickening of the fissures and bilateral lower lobe dependent infiltrates suggestive of atelectasis. There are small to moderate size bilateral pleural effusions present. MEDIASTINUM: No significant enlarged mediastinal or hilar lymph nodes are seen. HEART: The heart appears mildly enlarged. No pericardial effusion is present. THORACIC AORTA: The thoracic aorta is normal in caliber and demonstrates homogeneous contrast opacification. ABDOMEN: No acute findings are seen on the visualized portion of the upper abdomen. BONES: No significant focal osseous abnormality is seen. IMPRESSION: 1. SLIGHTLY LIMITED EXAM, NO EVIDENCE FOR PULMONARY EMBOLISM. 2. FINDINGS MOST CONSISTENT WITH CONGESTIVE HEART FAILURE.
--- NOTE | 2018-04-15 13:39 | PN ---
Progress Note - Progress Note Date of Service: 04/15/18 Note: She developed a short, non-sustained run of SVT. In addition her BNP and D- dimer were positive. Her EKG was benign. I ordered a CT angiogram to rule out PE Investigation; Patient Name: JUAN KIRKLAND Medical Record#: [id number] Ordering Physician: Mukesh South MD Acct.#: [id number] : 1945 Age: 72 Sex: F Location: [address] [place] [address]/[place] Exam Date: 04/15/18 1223 ADM Status: ADM IN Order Information: CTA CHEST Accession Number: [id number] CPT: 32278 INDICATION: Shortness of breath, possible PE. COMPARISON: There are no relevant prior studies available for comparison. TECHNIQUE: A CT angiogram of the chest was performed with intravenous following intravenous injection of 67 ml of Visipaque 320 nonionic contrast. Contiguous axial sections were obtained from the lung apices through the lung bases. Images were reconstructed in the coronal and sagittal planes. FINDINGS: PULMONARY ARTERIES: The exam is slightly limited due to streak and motion artifact. No intraluminal filling defect or pulmonary embolism is seen. LUNGS: There is prominence of the interstitial markings, thickening of the fissures and bilateral lower lobe dependent infiltrates suggestive of atelectasis. There are small to moderate size bilateral pleural effusions present. MEDIASTINUM: No significant enlarged mediastinal or hilar lymph nodes are seen. HEART: The heart appears mildly enlarged. No pericardial effusion is present. THORACIC AORTA: The thoracic aorta is normal in caliber and demonstrates homogeneous contrast opacification. ABDOMEN: No acute findings are seen on the visualized portion of the upper abdomen. BONES: No significant focal osseous abnormality is seen. IMPRESSION: 1. SLIGHTLY LIMITED EXAM, NO EVIDENCE FOR PULMONARY EMBOLISM. 2. FINDINGS MOST CONSISTENT WITH CONGESTIVE HEART FAILURE. <Electronically signed by Ruslan Santiago MD in OV> 04/15/18 1317 Dictated By: Ruslan Santiago MD Dictated Date/Time: 04/15/18 1317 Transcribed Date/Time: 04/15/18 1308 Copy to: CC:Mukesh South MD; Jocelin Bingham MD; Selvin Green MD; Wallace Bowens MD This report is only to be considered final once signed by the Provider(s) as displayed in the "<Electronically Signed by >" field (s). Absence of a signature indicates the report is in a draft status and still needs to be finalized. In the event this document was created by someone other than the signing Provider, the individual initiating the document will be listed in the "Entered by:" or "Dictated by:" andrews. 1 of 2 A/P: I am sending her home on furosemide 20 mg qdaily with KCL 20 meq Qdaily. She will weigh herself daily and let us know if there are any changes in weight > 2 lbs.
--- NOTE | 2018-04-18 00:01 | DS ---
CC: Wallace Bowens MD DISCHARGE SUMMARY: DATE OF ADMISSION: DATE OF DISCHARGE: DISCHARGE DIAGNOSES: 1. Severe anemia. 2. GI hemorrhage with unknown primary source. 3. Hemorrhoids. 4. Anal fissure. 5. Volume overload. 6. Nonsustained supraventricular tachycardia. PROCEDURES: EGD, colonoscopy, CT angiogram. HISTORY: Radha Whitehead is a healthy 72-year-old. Her presentation is documented in Dr. Jocelin Hanson's admitting history and physical, which is part of the electronic medical record. In short, she has a history of hemorrhoids. She had been seen in my office a month before admission with anemia w ith hemoglobin around 10. She had some hemorrhoidal bleeding. She was seen as an outpatient by Dr. Alcira Fabian, who noted hemorrhoids, which did not appear to be bleeding and an anal fissure, which had a vein in its base, which she thought might be the culprit. She treated this conservatively. The patient developed furt her bleeding, which was both bright red blood in the toilet bowl and darker black stool. She develop ed extreme fatigue in the 2 weeks before admission with shortness of breath on exertion. Denied ches t pain and dizziness. In the emergency room, she was found to have a hemoglobin of 5.5 with a hemato crit of 17. PHYSICAL EXAMINATION: In the emergency room, no acute distress. Temperature 98.4, heart rate 92, re spirations 18, oxygen saturation 100%, blood pressure 144/58. She had a benign examination. LABORATORY DATA: White count 6.9, hemoglobin 5.4, hematocrit 17, MCV 97, platelets 321. Sodium 140, potassium 4.0, chloride 109, bicarbonate 24, anion gap 7, BUN 19, creatinine 0.4, glucose 128. Norm al LFTs. INITIAL IMPRESSION: GI bleed. She noted in 2016 that the patient has had a colonoscopy with a polyp removed at that time. She was admitted for transfusion and to evaluate the cause of blood loss with a GI consult. CONSULTATIONS: On 04/13/18, Dr. Wallace Bowens, his note is part of the electronic medical record. H is impression intermittent bleeding, which was mostly described as red blood, black pus in the fashio n that suggested that this might be hemorrhoidal. She had some upper GI pain. He recommended an EGD , which was performed on 04/13/18, this was normal. He also performed a normal flexible sigmoidoscop y on that day and on 04/14/18 performed a colonoscopy, again the note is part of the electronic recor d. There was a cecal cap polyp removed and it was not the culprit lesion. He noted an AVM in the he patic flexure, this was a cecal lesion and he cauterized it. INVESTIGATIONS: Hemoglobin was restored by 2 units of packed red cells. On 04/15/18, her hemoglobin was 7.8, hematocrit 92. On 04/15/18, her BMP was 377. She had a D-dimer of 501. She had a CEA of 0 .6 and a CA-125 of 11. Her ferritin was 18.9. IMAGING: On 04/15/18, CT angiogram of the chest ruled out pulmonary embolism. She had some signs of possible congestive cardiac failure. HOSPITAL COURSE: She had no further GI bleeding during the hospital stay. Dr. Wallace Bowens ruled o ut hemorrhoids and anal region as being the source of the bleeding. He did not find an active source for the bleeding, though he found an AVM in her hepatic flexure. Given her BUN did not increase, it seems likely that the source of the bleeding was distal to the duodenum, it may be proximal to the c ecum; however, possibly angioplasia or an AVM in the small intestine. She recovered symptomatically after her blood transfusions, which she tolerated well. On the day of discharge on walking, she was dyspneic and she saturated her oxygen. She had a short run of an SVT, I therefore ordered the CT angiogram after a positive D-dimer, this came back negative. She had some diuretic before discharge and was feeling much better with normal oxygen saturations. PHYSICAL EXAMINATION ON DAY OF DISCHARGE: Temperature 99.1, pulse rate 84, respirations 20, blood pr essure 133/77, oxygen saturation 90%. Warm and well perfused, in no acute distress. No cyanosis, an emia, jaundice, or clubbing. Respiratory System: Chest expansion full and symmetrical. Percussion n ote resonant. Breath sounds with a few fine crackles at her bases. No wheezes or respiratory distre ss, otherwise her pulse was regular. Normal heart sounds. No murmur. No pedal edema. Abdomen was soft and benign. ASSESSMENT AND PLAN: 1. Severe anemia, this was likely due to GI bleed and was treated with x2 units of packed red cells. She has iron deficiency. We will treat this with ferrous sulfate 325 mg every other day with vitam in C 500 mg. She will take a multivitamin on the off day. 2. GI hemorrhage. She will follow up as an outpatient with Dr. Wallace Bowens, who will further eval uate possible causes for this hemorrhage. 3. Sodium overload/congestive heart failure. This recovered easily with some diuresis. I will foll ow this up as an outpatient; however, she has no history of risk factors for congestive heart failure and no history of any cardiovascular disease. I note that her EKG during this hospital stay showed normal sinus rhythm. DISCHARGE MEDICATIONS: 1. Vitamin C 500 mg every other day. 2. Ferrous sulfate 325 mg every other day together with the vitamin C. 3. Multivitamin 1 tablet a day on the off day when she is not taking iron and vitamin C. 4. Furosemide 20 mg every day. 5. Potassium chloride 20 mEq every day. She will restart some other supplements, which include: 1. Gingko. 2. Melatonin. 3. Glucosamine. 4. Lutein. 5. Evening primrose oil. 6. Vitamin D 1000 units daily. 7. Some docusate 100 mg as needed. 8. Omeprazole 20 mg daily. She has an appointment to see me as an outpatient and also to see Dr. Wallace Boewns. [id number]/[facility] #: [id number]
== END 2018-04-15 14:50 | disposition home or self-care (01) | DRG 378 ==
LOC: ED 15:05 → MEDTELE 17:45 → OBSVTOIN 04-14 07:59
PROVIDERS: ADMIT Internal Medicine; ATTEND Internal Medicine
PROC: 30233N1 Transfusion of Nonautologous Red Blood Cells into Peripheral Vein, Percutaneous Approach (ICD-10-PCS; principal; 2018-04-14)
PROC: 0DBH8ZZ Excision of Cecum, Via Natural or Artificial Opening Endoscopic (ICD-10-PCS; 2018-04-14)
PROC: 0DJ08ZZ Inspection of Upper Intestinal Tract, Via Natural or Artificial Opening Endoscopic (ICD-10-PCS; 2018-04-14)
PROC: 0DJD8ZZ Inspection of Lower Intestinal Tract, Via Natural or Artificial Opening Endoscopic (ICD-10-PCS; 2018-04-14)
DX: K55.21 Angiodysplasia of colon with hemorrhage (principal); I47.1 Supraventricular tachycardia; E87.0 Hyperosmolality and hypernatremia; K92.1 Melena; K60.2 Anal fissure, unspecified; G43.B0 Ophthalmoplegic migraine, not intractable; M41.9 Scoliosis, unspecified; M17.0 Bilateral primary osteoarthritis of knee; M85.80 Other specified disorders of bone density and structure, unspecified site; M54.30 Sciatica, unspecified side; D50.9 Iron deficiency anemia, unspecified; E73.9 Lactose intolerance, unspecified; E02 Subclinical iodine-deficiency hypothyroidism; D12.0 Benign neoplasm of cecum; I73.00 Raynaud's syndrome without gangrene; H26.9 Unspecified cataract; Z87.891 Personal history of nicotine dependence; Z72.89 Other problems related to lifestyle; Z80.0 Family history of malignant neoplasm of digestive organs; Z88.0 Allergy status to penicillin; Z80.3 Family history of malignant neoplasm of breast; Z82.0 Family history of epilepsy and other diseases of the nervous system; Z80.41 Family history of malignant neoplasm of ovary
CPT/HCPCS: 36415; 71275; 80048; 80053; 82270; 82272; 82378; 82728; 83540; 83550; 83880; 85014; 85018; 85025; 85379; 85610; 86304; 86850; 86900; 86901; 86922; 88305; 93005; 99156; 99157; 99284; A9270-GY; J2250; J3010; P9016; P9040; Q9967

== ENCOUNTER 2019-01-08 18:57 | Inpatient (IN) | payer MEDICARE, BC ==
--- NOTE | 2019-01-08 19:31 | ED ---
GI/ HPI - HPI Summary HPI Summary: This patient is a 73 year old female presenting to [facility] with a chief complaint of rectal bleed since 18 hours ago. She states it started suddenly and she is passing blood with bowel movements and gas. She has a history of this happening twice before and states when it happens she bleeds for 3-5 days and sometimes needs a transfusion. She denies any pain. She states the blood is an orangish dark color. She states when she had her previous bleeds she had endoscopies performed and they found no acute findings. - History of Current Complaint Chief Complaint: EDGIBleed Time Seen by Provider: 01/08/19 19:24 Stated Complaint: RECTAL BLEEDING PER PT Hx Obtained From: Patient Onset/Duration: Started Hours Ago Timing: Intermittent Pain Intensity: 0 Associated Signs and Symptoms: Positive: Blood w/Stool - Additional Pertinent History Primary Care Physician: [id number] - Allergy/Home Medications Allergies/Adverse Reactions: Allergies Allergy/AdvReac Type Severity Reaction Status Date / Time ampicillin Allergy Intermediate Rash Verified 01/08/19 19:38 PMH/Surg Hx/FS Hx/Imm Hx Endocrine/Hematology History: Reports: Hx Anemia Cardiovascular History: Reports: Other Cardiovascular Problems/Disorders - REYNAUD/S ONLY IN COLD TEMP Denies: Hx Hypercholesterolemia, Hx Hypertension GI History: Denies: Hx Jaundice Musculoskeletal History: Reports: Hx Arthritis - BILAT KNEES, Hx Scoliosis Sensory History: Reports: Hx Cataracts - BILAT, Hx Contacts or Glasses Denies: Hx Hearing Aid Opthamlomology History: Reports: Hx Cataracts - BILAT, Hx Contacts or Glasses - Cancer History Hx Chemotherapy: No Hx Radiation Therapy: No - Surgical History Surgery Procedure, Year, and Place: HEMORRHOIDECTOMY 1989 [facility]. D&C 1989 [facility]. LYMPH NODE BX 1955 R/T CAT SCRATCH FEVER. TONSILLECTOMY AND ADENOIDECTOMY 1951 ,[facility] Hx Anesthesia Reactions: No Infectious Disease History: No Infectious Disease History: Denies: Hx Clostridium Difficile, Hx Hepatitis, Hx Human Immunodeficiency Virus (HIV), Hx of Known/Suspected MRSA, Traveled Outside the [place] in Last 30 Days - Family History Known Family History: Positive: Other - Colon CA, breast CA, parkinson's - Social History Alcohol Use: Rare Hx Substance Use: No Substance Use Type: Reports: None Hx Tobacco Use: Yes Smoking Status (MU): Former Smoker Type: Cigarettes Have You Smoked in the Last Year: No Review of Systems Negative: Fever Positive: other - Hematochezia All Other Systems Reviewed And Are Negative: Yes Physical Exam - Summary Physical Exam Summary: Appearance: well appearing, no pain distress Skin: warm, dry, reflects adequate perfusion Head/face: normal Eyes: EOMI, Pallor in her conjunctiva. Bilateral implanted lenses in the eyes. ENT: mucous membranes moist Neck: supple, non-tender Respiratory: CTA, breath sounds present Cardiovascular: RRR, pulses symmetrical Abdomen: non-tender, soft, R sided abd mass Bowel Sounds: present Musculoskeletal: normal, strength/ROM intact Neuro: normal, sensory motor intact, A&Ox3 Renal: No gross blood evident. No active bleeding present. External hemorrhoids present. Triage Information Reviewed: Yes Vital Signs On Initial Exam: Initial Vitals Temp Pulse Resp BP Pulse Ox 98.5 F 91 14 126/77 96 01/08/19 18:58 01/08/19 18:58 01/08/19 18:58 01/08/19 18:58 01/08/19 18:58 Vital Signs Reviewed: Yes Diagnostics - Vital Signs Vital Signs Temp Pulse Resp BP Pulse Ox 01/08/19 18:58 98.5 F 91 14 126/77 96 - Laboratory Result Diagrams: 01/08/19 19:27 01/08/19 19:27 Lab Statement: Any lab studies that have been ordered have been reviewed, and results considered in the medical decision making process. - EKG 1927 Cardiac Rate: NL EKG Rhythm: Sinus Rhythm - 84 BPM Summary of EKG Findings: Low voltage, Poor R-wave progression, no ST wave changes. GIGU Course/Dx - Course Course Of Treatment: Nurses' notes reviewed. Vitals are stable. No blood thinners. History of same with history that sounds like diverticular bleeding. Elevated WBC with normal hemoglobin. CT pending to eval for mass. Hospitalist aware and will admit. - Diagnoses Differential Diagnoses - Female: Constipation, Colitis, Diverticulosis, Hemorrhoids, Neoplasm Provider Diagnoses: Lower GI bleed, Leukocytosis, Abdominal mass, RLQ (right lower quadrant) - Physician Notifications Discussed Care Of Patient With: Paz Garcia - Hospitalist Time Discussed With Above Provider: 19:58 Discharge - Sign-Out/Discharge Documenting (check all that apply): Patient Departure - Admission Patient Received Moderate/Deep Sedation with Procedure: No - Discharge Plan Condition: Fair Disposition: ADMITTED TO [facility] Referrals: Mukesh South MD [Primary Care Provider] - - Billing Disposition and Condition Condition: FAIR Disposition: Admitted to [facility] - Attestation Statements Document Initiated by Rishabh: Yes Documenting Scribe: Kamar Rudolph Provider For Whom Rishabh is Documenting (Include Credential): Hever Tejeda MD Scribe Attestation: Kamar Sotomayor, scribed for Hever Tejeda MD on 01/08/19 at 2046. Scribe Documentation Reviewed: Yes Provider Attestation: The documentation as recorded by the Kamar moreira accurately reflects the service I personally performed and the decisions made by , Hever Tejeda MD Status of Scribe Document: Viewed
[2019-01-08 19:37] LABS: Hematocrit 39 % (35-47); Hemoglobin 12.6 g/dL (12.0-16.0); Mean Corpuscular HGB Conc 32 g/dL (31-36); Mean Corpuscular Hemoglobin 29 pg (27-31); Mean Corpuscular Volume 91 fL (80-97); Mean Platelet Volume 8.1 fL (7.4-10.4); Platelet Count 336 10^3/uL (150-450); Red Blood Count 4.28 10^6 /uL (3.70-4.87); Red Cell Distribution Width 13 % (10-15); White Blood Count 22.5 10^3/uL (3.5-10.8)
[2019-01-08 19:39] LABS: ABS Basophils 0.1 10^3/ul (0-0.2); ABS Eosinophils 0.1 10^3/ul (0-0.6); ABS Monocytes 1.6 10^3/ul (0-0.8); ABS Neutrophils 18.8 10^3/ul (1.5-7.7); Eosinophil % 0.4 %; Lymphocyte % 8.7 %
[2019-01-08 19:44] LABS: Activated Partial Thrombo Time 33.3 seconds (26.0-38.0); INR 1.15 (0.82-1.09)
[2019-01-08 19:54] LABS: Albumin 4.1 g/dL (3.2-5.2); Albumin/Globulin Ratio 1.5 (1-3); Calcium 9.4 mg/dL (8.6-10.3); EGFR African American 61.8 (>60); EGFR Non-African American 51.1 (>60); Globulin 2.7 g/dL (2-4); Total Bilirubin 0.8 mg/dL (0.2-1.0); Total Protein 6.8 g/dL (6.4-8.9)
[2019-01-08] MEDS ORDERED: Ondansetron INJ* 2 MG/ML VIAL IV PRN (21:02)
[2019-01-08] MEDS ORDERED: Pantoprazole IV* 40 MG IV SCH (22:00)
--- NOTE | 2019-01-08 22:21 | PN ---
Hospitalist Progress Note Date of Service: 01/08/19 CT resulted revealing large soft tissue mass occupying pelvis with possible communication to adjacent bowel. Paged General Surgery banquet houseperson and discussed case with Dr Espino. Since patient has stable vital and stable labs, Dr Espino recommends triple contrast CT scan (oral, IV, and rectal). He recommends calling radiology and discussing this triple contrast scan in morning which can be done by attending provider tomorrow. In addition he recommends placing call to [employer]PERATOR for fyi.
[2019-01-08] MEDS: Pantoprazole IV* 40 MG IV SCH (23:53)
--- NOTE | 2019-01-08 23:55 | HP ---
CC: Dr. South.* HISTORY AND PHYSICAL: DATE OF ADMISSION: 01/08/19 PRIMARY CARE PROVIDER: Dr. South. ATTENDING PHYSICIAN: Dr. Garcia * (dictated by Nel Chavez NP). CHIEF COMPLAINT: Rectal bleeding. HISTORY OF PRESENT ILLNESS: Mrs. Fraser is a 73-year-old female with a past medical history significant for rectal bleeding, migraines, hemorrhoids, anemia , Raynaud's, arthritis, scoliosis, cataract, who presented to the emergency department today with complaints of rectal bleeding since 18 hours ago. The patient reports around 0400 this morning she had some stomach cramping and felt like she had to have a BM. She went to the bathroom, had a BM, and noted blood when wiping. She reports bleeding continued intermittently whenever she would pass gas. She also reports she had another small stool and she again noted blood when wiping. The patient reports the blood is "orange" in color and there are clots. The patient reports she felt mildly weak this morning, but she denies dizziness, pain with passing stool, nausea, vomiting, shortness of breath , fever, abdominal pain. While in the emergency department, the patient had labs which revealed leukocytosis at 22.5. She is not anemic currently as her hemoglobin is 12.6 and hematocrit is 39. Her BMP revealed a creatinine of 1.05 , glucose of 109, and AST of 45. Given the patient's rectal bleeding and history of the same, the hospitalists were asked to evaluate for admission. The patient will be placed on observation. PAST MEDICAL HISTORY: 1. Rectal bleeding. 2. Migraines. 3. Hemorrhoids. 4. Anemia. 5. Raynaud's. 6. Arthritis. 7. Scoliosis. 8. Cataracts. PAST SURGICAL HISTORY: 1. Hemorrhoidectomy. 2. D and C. 3. Lymph node biopsy. 4. Tonsillectomy/adenoidectomy. ALLERGIES: AMPICILLIN. FAMILY HISTORY: She reports her father of an [place] at the age of 48. She reports her mother at the age of 101 of "old age". She reports her paternal grandmother had breast cancer. Maternal grandmother had colon cancer. Paternal grandmother also had diabetes. SOCIAL HISTORY: The patient reports she is a former smoker. She smoked approximately 4 years in college. The patient reports rare alcohol use. The patient denies drug use. The patient is retired. The patient lives with her . The patient is independent in her ADLs. REVIEW OF SYSTEMS: A 14-point review of systems was performed and all pertinent positive and negative findings are in the HPI. All others are negative. PHYSICAL EXAMINATION GENERAL: Ms. Fraser is a 73-year-old female who is sitting in bed, appears to be in no acute distress. Appears stated age. VITAL SIGNS: Temp 98.5, HR 91, RR 14, O2 saturation 97% on room air, BP 126/77. HEENT: EOMs intact. PERRLA. Oral mucosa is moist without lesion. Posterior pharynx is clear. NECK: Supple. Full range of motion. No lymphadenopathy. RESPIRATORY: Symmetrical chest expansion. No accessory muscle use. Lungs are clear to auscultation. No rhonchi, wheezes, or rubs. CV: Regular rate and rhythm. S1, S2 present. No murmurs, rubs or gallops. EXTREMITIES: Skin is warm and smooth bilaterally. No edema. No clubbing or cyanosis. Pedal pulses are 2+ bilaterally. MUSCULOSKELETAL: Full range of motion. No pain or deformities. ABDOMEN: Soft and nontender to palpation. Bowel sounds are normoactive. NEURO: Awake, alert, and oriented x4. Motor strength is 5/5 in upper and lower extremities SKIN: Grossly intact without lesions. DIAGNOSTIC STUDIES/LAB DATA: WBC 22.5, hemoglobin 12.6, hematocrit 39, platelets 336. INR 1.15. Sodium 136, potassium 4.0, chloride 103, carbon dioxide 27, BUN 21, creatinine 1.05, glucose 109. EKG: Sinus rhythm. CT of abdomen and pelvis is pending. ASSESSMENT AND PLAN: Ms. Fraser is a 73-year-old female with past medical history significant for rectal bleeding, migraines, hemorrhoids, anemia, Raynaud 's, arthritis, scoliosis, cataracts, who presented to the emergency department today with complaints of rectal bleeding. The patient will be placed in OBV. 1. Rectal bleeding: The patient presents today with rectal bleeding. The patient has a history of these symptoms. The patient was admitted in April 2018 for the same. Since that admission the patient underwent a small bowel capsule endoscopy on 05/26/18, which revealed a normal capsule endoscopy study. In addition, the patient underwent a colonoscopy on 04/14/18, which was reported as a difficult colonoscopy; hepatic flexure arterial venous malformation, cecal cap polyp. And finally the patient had an EGD on 04/13/18, which was reported as a normal EGD. It was also reported that the source was unclear for bleeding. The patient will be admitted to the medical floor. The patient will be placed under observation. The patient will remain n.p.o. The patient will be placed on a PPI intravenously. We will monitor patient's hemoglobin and hematocrit q.6 hours. We will monitor patient's vital signs. 2. History of migraines: The patient reports a history of migraines, but has not had any in several years. 3. Hemorrhoids: The patient has a history of hemorrhoids, status post hemorrhoidectomy. 4. Anemia: The patient has a history of anemia secondary to gastrointestinal bleeding. The patient is currently not anemic. We will continue to monitor H and H. 5. Raynaud's disease: The patient reports history of Raynaud's disease when her hands get cold. Supportive care. 6. Arthritis: The patient has history of arthritis. We will provide supportive care. 7. FEN: The patient will be n.p.o. 8. Code status: The patient is a full code. 9. Surrogate decision maker: The patient's surrogate decision maker will be her , Mars Whitehead, , in the event she cannot make a decision for herself. 10. DVT prophylaxis: Based on the patient's DVT risks assessment, she is high risk. Given the report of bleeding per rectum, I will not be placing the patient on a chemical DVT prophylaxis at this time. The patient will be placed on SCD. The patient will be encouraged to ambulate. TIME SPENT: Approximately 65 minutes were spent on this admission, greater than half of that time was spent with the patient and caregiver obtaining my history, performing my physical exam, and reviewing my plan of care. This case has been reviewed with my attending, Dr. Garcia, who is in agreement with my plan of care. NEL CHAVEZ, JOE [id number]/[facility] #: [id number] ROC[facility] GENERAL HOSPITALAlvina
[2019-01-09 02:19] LABS: ABS Basophils 0.1 10^3/ul (0-0.2); ABS Eosinophils 0.1 10^3/ul (0-0.6); ABS Lymphocytes 1.6 10^3/ul (1.0-4.8); ABS Monocytes 1.2 10^3/ul (0-0.8); ABS Neutrophils 13.2 10^3/ul (1.5-7.7); Eosinophil % 0.8 %; Hematocrit 35 % (35-47); Hemoglobin 11.4 g/dL (12.0-16.0); Lymphocyte % 9.6 %; Mean Corpuscular HGB Conc 33 g/dL (31-36); Mean Corpuscular Hemoglobin 29 pg (27-31); Mean Corpuscular Volume 90 fL (80-97); Platelet Count 275 10^3/uL (150-450); Red Blood Count 3.88 10^6 /uL (3.70-4.87); Red Cell Distribution Width 14 % (10-15); White Blood Count 16.2 10^3/uL (3.5-10.8)
[2019-01-09 05:08] LABS: Urine Appearance Clear; Urine Bilirubin Negative (Negative); Urine Blood Negative (Negative); Urine Color Yellow; Urine Glucose Negative (Negative); Urine Ketones Negative (Negative); Urine Nitrite Negative (Negative); Urine Protein Negative (Negative); Urine Specific Gravity 1.016 (1.010-1.030); Urine Urobilinogen Negative (Negative)
[2019-01-09 06:51] LABS: ABS Basophils 0.1 10^3/ul (0-0.2); ABS Eosinophils 0.2 10^3/ul (0-0.6); ABS Lymphocytes 1.2 10^3/ul (1.0-4.8); ABS Monocytes 1.1 10^3/ul (0-0.8); Eosinophil % 1.3 %; Hematocrit 36 % (35-47); Hemoglobin 11.7 g/dL (12.0-16.0); Lymphocyte % 8.1 %; Mean Corpuscular HGB Conc 32 g/dL (31-36); Mean Corpuscular Hemoglobin 29 pg (27-31); Mean Corpuscular Volume 91 fL (80-97); Nucleated Red Blood Cells % 0.1; Platelet Count 287 10^3/uL (150-450); Red Blood Count 3.99 10^6 /uL (3.70-4.87); Red Cell Distribution Width 13 % (10-15); White Blood Count 14.6 10^3/uL (3.5-10.8)
[2019-01-09 07:12] LABS: Albumin 3.5 g/dL (3.2-5.2); Albumin/Globulin Ratio 1.5 (1-3); BUN/Creatinine Ratio 21.3 (8-20); EGFR African American 74.8 (>60); EGFR Non-African American 61.8 (>60); Globulin 2.3 g/dL (2-4); Potassium 4.1 mmol/L (3.5-5.0); Total Bilirubin 0.7 mg/dL (0.2-1.0); Total Protein 5.8 g/dL (6.4-8.9)
[2019-01-09] MEDS: Pantoprazole IV* 40 MG IV SCH ×2 (08:27→21:40)
--- NOTE | 2019-01-09 13:14 | CONS ---
CC: Dr. South * CONSULTATION REPORT: DATE OF CONSULT: 01/09/19 REQUESTING PHYSICIAN: Dr. Gann. PRIMARY CARE PHYSICIAN: Dr. South. INDICATION: Hematochezia. NARRATIVE: Mrs. Fraser is a very pleasant 73-year-old female who has a past medical history of migraines, hemorrhoids, history of anemia, Raynaud's, arthritis, scoliosis, who presented to the emergency room with rectal bleeding. The patient states that she awoke at 4 a.m. on Thursday morning. Yesterday morning, she normally awakens around this time, she felt the urge to have a bowel movement. She went in and there was blood in the toilet bowl. She states that she was having mild cramping, however, nothing significant. She does occasionally have abdominal pain and cramping she believes secondary to lactose intolerance. She denies any dizziness or lightheadedness. No nausea, no vomiting. She almost never takes nonsteroidals. She has had an extensive workup in the past for anemia. She is a patient of Dr. Rodrigez and had an EGD and colonoscopy in April of last year. Unfortunately, I am unable to find Dr. Bowens's report anywhere in the hospital record. 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 She was discharged. She underwent a small bowel capsule endoscopy with Dr. Mayfield, which was unremarkable. Unfortunately, I do not know if she had any diverticulosis as again I am having a very difficult time finding Dr. Bowens's procedure report. The patient did undergo a noncontrasted CT in the emergency room and was found to have a pelvic mass. I was called for further evaluation of a rectal bleeding. Currently, she feels fine. She does have the feeling that she may have to have a bowel movement, but again no nausea, no vomiting, no fevers, no chills, no unintentional weight loss, no abdominal pain. PAST MEDICAL HISTORY: Please see the HPI. PAST SURGICAL HISTORY: Includes hemorrhoid surgery, lymph node biopsy, tonsillectomy. MEDICATIONS AT HOME: None. ALLERGIES: To AMPICILLIN. FAMILY HISTORY: Coronary artery disease, breast cancer, maternal grandmother with colon cancer. SOCIAL HISTORY: She quit smoking many decades ago. Rare alcohol. No IV drug use. REVIEW OF SYSTEMS: Twelve systems were reviewed, and other than that mentioned in the HPI, were unremarkable. PHYSICAL EXAM: Temperature is 97.1, blood pressure is 123/72, pulse is 79, respiratory rate of 16, O2 sat is 96%. General: Well-appearing female, in no apparent distress, alert, oriented, pleasant, fluent. HEENT: Mucous membranes are moist without lesions, ulcers, or exudate. Neck is supple. Trachea is midline. Head is normocephalic, atraumatic. Heart: Regular rate and rhythm. Lungs: Clear to auscultation. Abdomen: Positive bowel sounds. Soft, nontender, nondistended. No hepatosplenomegaly, masses, rebound, or guarding. She does have a palpable pelvic mass. Good bowel sounds. No tenderness to palpation even over the mass. Skin is warm and dry. DIAGNOSTIC STUDIES/LAB DATA: Labs of note, white count has fallen from 22 to 14.6, hemoglobin is 11.7, platelet count is normal at 287. INR is 1.15. BUN is normal. Creatinine is normal. She has a CT abdomen and pelvis from yesterday at approximately 8 p.m. which reveals a large soft tissue mass occupying most of the pelvis, possibly arising from the uterus, containing a foci of air, fistula cannot be ruled out. No bowel obstruction. 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 I do not have a good explanation for her rectal bleeding. Unfortunately, I cannot find her previous colonoscopy report to determine whether or not there was diverticulosis. This could potentially be a diverticular bleed, unlikely to be a polyp or malignancy. She just had a complete colonoscopy in the past year and a half. She had one 2 years earlier also. Unlikely to be ischemic colitis. The patient did have a little bit of pain, but not typically enough that I would suspect ischemic colitis. She does have this mass which could be compressing blood vessels that could lead to occlusive effect for a mesenteric ischemia or an ischemic colitis that is being worked up with EDUCATION FACULTY MEMBER and an MRI. At this point, her hemoglobin is relatively stable. I do not think we need to jump right in and do any endoscopic procedures. Currently, we will await the MRI and make determinations based on it and her continued course and hemoglobin. We will follow along. [id number]/[facility] #: [id number] ROSA M
[2019-01-09 17:54] LABS: Hematocrit 36 % (35-47); Hemoglobin 11.6 g/dL (12.0-16.0)
[2019-01-10 06:34] LABS: ABS Basophils 0.1 10^3/ul (0-0.2); ABS Eosinophils 0.2 10^3/ul (0-0.6); ABS Lymphocytes 0.9 10^3/ul (1.0-4.8); ABS Monocytes 0.8 10^3/ul (0-0.8); ABS Neutrophils 7.2 10^3/ul (1.5-7.7); Eosinophil % 2.6 %; Hematocrit 35 % (35-47); Hemoglobin 11.5 g/dL (12.0-16.0); Lymphocyte % 9.6 %; Mean Corpuscular HGB Conc 33 g/dL (31-36); Mean Corpuscular Hemoglobin 30 pg (27-31); Mean Corpuscular Volume 90 fL (80-97); Mean Platelet Volume 8.2 fL (7.4-10.4); Platelet Count 267 10^3/uL (150-450); Red Blood Count 3.91 10^6 /uL (3.70-4.87); Red Cell Distribution Width 13 % (10-15); White Blood Count 9.2 10^3/uL (3.5-10.8)
[2019-01-10] MEDS: Pantoprazole IV* 40 MG IV SCH ×2 (07:56→21:16)
--- NOTE | 2019-01-10 08:27 | PN ---
Subjective - Subjective Reason for Note: Progress Note History: I have reviewed her presentation with the patient, Dr. Elizabeth Jacinto's admitting H and P, Dr. Juve Cisneros's consultation note. She is feeling well this morning. She has no pain or discomfort. She had a BM which contained some orange color in the night. She has noted her abdomen has become more prominent in recent months despite deliberate weight loss. She has a strong FH of fibroids and a personal history. Active Problems: Active Problems Hematochezia (Acute) K92.1 AVM (arteriovenous malformation) of colon (Chronic) K55.20 Pelvic mass (Acute) R19.00 Family history of ovarian cancer (Chronic) Z80.41 Family history of colon cancer (Chronic) Z80.0 Raynauds phenomenon (Chronic) I73.00 Bleeding hemorrhoids (Chronic) K64.9 Anemia (Acute) D64.9 Subclinical hypothyroidism (Chronic) E03.9 Current Medications: Current Medications Ondansetron HCl (Zofran Inj*) 4 mg IV Q4H PRN PRN Reason: NAUSEA/VOMITING Pantoprazole Sodium (Protonix Iv*) 40 mg IV BID RAMOS Last Admin: 01/10/19 07:56 Dose: 40 mg - Review of Systems Constitutional Symptoms: No: Weakness, Fatigue, Fever, Night Sweats Pulmonary: Negative: Cough, Sputum Cardiology: Negative: Chest Pain, Shortness of Breath, Palpitations, Swelling of Ankles Gastroenterology: Negative: Abdominal Pain, Nausea, Vomiting, Anorexia, Change in Bowel Habits Genitourinay - Female: Abnormal: Menopause, Other - No vaginal bleeding. Home Medications: Home Medications Medication Instructions Recorded Confirmed Type Cholecalciferol (Vitamin D3) 1,000 unit PO DAILY 04/12/18 01/08/19 History [Vitamin D3] Ena [place]/Linoleic/Gamoleni 1,000 mg PO DAILY 04/12/18 01/08/19 History [Evening Block[place] 1,000 mg Sftg] Glucosamine/D3/Boswellia Pauly 1 tab PO DAILY 04/12/18 01/08/19 History [Glucosamine Complex Tablet] Lutein [Natural Lutein] 20 mg PO DAILY 04/12/18 01/08/19 History Melatonin 5 mg PO DAILY 04/12/18 01/08/19 History Multivitamins/Minerals TAB* 1 tab PO EVERY OTHER DAY #45 tab 04/15/18 01/08/19 Rx [Theragran/minerals TAB*] Allergies: Allergies Allergy/AdvReac Type Severity Reaction Status Date / Time ampicillin Allergy Intermediate Rash Verified 01/08/19 19:38 Objective - Vital Signs Vital Signs: Vital Signs 01/09/19 01/09/19 01/09/19 10:53 15:52 19:34 Temperature 97.1 F 98 F 98.1 F Pulse Rate 79 75 77 Respiratory 16 22 18 Rate Blood Pressure 123/72 108/74 114/68 (mmHg) O2 Sat by Pulse 96 99 96 Oximetry 01/09/19 01/09/19 01/10/19 20:00 22:56 03:07 Temperature 98.4 F 97.7 F Pulse Rate 75 85 Respiratory 16 19 17 Rate Blood Pressure 103/62 122/82 (mmHg) O2 Sat by Pulse 97 99 Oximetry 01/10/19 07:24 Temperature 97.7 F Pulse Rate 69 Respiratory 14 Rate Blood Pressure 127/74 (mmHg) O2 Sat by Pulse 100 Oximetry - Intake and Output Intake and Output: Intake & Output 01/07/19 01/08/19 01/09/19 01/10/19 11:59 11:59 11:59 11:59 Intake Total 0 1450 Output Total 250 1000 Balance -250 450 Weight 135 lb 8 oz Intake: Oral 0 1450 Output: Urine 250 1000 Other: Estimated Void Medium Medium Date of Last Bowel 01/09/19 Movement # Bowel Movements 0 0 # Voids 1 0 ADLs: Meal Record Start: 01/08/19 21: 36 Freq: DAILY@0900,1400,1800 Status: Active Protocol: Created 01/08/19 21:36 System (Rec: 01/08/19 21:36 System MED-M03) Document 01/09/19 08:59 [id number] (Rec: 01/09/19 09:00 [id number] MED-C09) Document 01/09/19 13:08 [id number] (Rec: 01/09/19 13:09 [id number] MED-C09) Document 01/09/19 17:48 [id number] (Rec: 01/09/19 17:49 [id number] MED-C04) Intake and Output Start: 01/08/19 19: 03 Freq: Status: Active Protocol: Created 01/08/19 19:03 System (Rec: 01/08/19 19:03 System [id number]) Intake and Output Start: 01/08/19 21: 36 Freq: DAILY@0600,1400,2200 Status: Active Protocol: Created 01/08/19 21:36 System (Rec: 01/08/19 21:36 System MED-M03) Document 01/09/19 06:00 [id number] (Rec: 01/09/19 06:27 [id number] MED-C16) Document 01/09/19 13:08 [id number] (Rec: 01/09/19 13:09 [id number] MED-C09) Document 01/09/19 22:00 [id number] (Rec: 01/09/19 22:04 [id number] MED-C16) Document 01/10/19 05:20 [id number] (Rec: 01/10/19 05:21 [id number] MED-C16) - Physical Exam General Physical Exam Comment: She is pale, but warm and well perfused. She is in no distress and his hemodynamically stable. She is conversational and has good insight into her condition, asking relevant questions. General: No Cyanosis, Yes Anemia, No Jaundice, No Clubbing Skin: Normal: Rash Lungs and Chest: Yes: Chest Expansion Full, Chest Expansion Symetrica, Percussion Note Resonant, Vessicular Breath Sounds. No: Crackles, Wheezes Heart Rate and Rhythm: Regular JVP: Not Elevated Additional Cardiovascular: Yes: Normal Heart Sounds. No: Heart Murmur, Pedal Edema Abdominal Exam: Yes: Soft, Abdominal Mass - Right abdominal mass arising from the pelvis, around 25 week size, though right sided., Bowel Sounds Present. No: Distention, Rigidity, Splenomegaly, Abdominal Tenderness, Guarding , Rebound Tenderness, Kidneys Palpable Results - Results Lab Results: Laboratory Results - last 24 hr 01/09/19 01/10/19 17:48 06:04 WBC 9.2 RBC 3.91 Hgb 11.6 L 11.5 L Hct 36 35 MCV 90 MCH 30 MCHC 33 RDW 13 Plt Count 267 MPV 8.2 Neut % (Auto) 78.3 Lymph % (Auto) 9.6 [place] % (Auto) 8.4 Eos % (Auto) 2.6 Baso % (Auto) 1.1 Absolute Neuts (auto) 7.2 Absolute Lymphs (auto) 0.9 L Absolute Monos (auto) 0.8 Absolute Eos (auto) 0.2 Absolute Basos (auto) 0.1 Absolute Nucleated RBC 0.0 Nucleated RBC % 0.0 Radiology Results: Patient Name: JUAN KIRKLAND Medical Record#: [id number] Ordering Physician: Hever Tejeda MD Acct.#: [id number] : 1945 Age: 73 Sex: F Location: [address] [place] [address] Exam Date: 01/08/191955 ADM Status: ADM Tru Order Information: CT ABD/PEL W/O Accession Number: [id number] CPT: 32712 EXAM: CT Abdomen and Pelvis Without Contrast EXAM DATE/TIME: 01/08/2019 8:27 PM CLINICAL HISTORY: 73 years old, female; Signs and symptoms; Other: Rectal bleeding; Prior surgery; Surgery date: 6+ months; Surgery type: D&c hemroidectomy; Additional info: Rectal bleeding, elevated wbc TECHNIQUE: Imaging protocol: Axial computed tomography images of the abdomen and pelvis without contrast. Coronal and sagittal reformatted images were created and reviewed. Radiation optimization: All CT scans at this facility use at least one of these dose optimization techniques: automated exposure control; mA and/or kV adjustment per patient size (includes targeted exams where dose is matched to clinical indication); or iterative reconstruction. COMPARISON: No relevant prior studies available. FINDINGS: Limitations: Evaluation of vascular structures and solid organs is limited by lack of IV contrast. Evaluation of the stomach and bowel is limited by lack of oral contrast. Lungs: No acute findings in visualized lung bases. ABDOMEN: Liver: Unremarkable. No mass. Gallbladder and bile ducts: Unremarkable. No calcified gallstones. No ductal dilation. Pancreas: Unremarkable. No ductal dilation. Spleen: Unremarkable. No splenomegaly. Adrenals: Unremarkable. No mass. Kidneys and ureters: No hydronephrosis or radiopaque renal stones. 1.1 cm cyst in right kidney. Stomach and bowel: No bowel obstruction. Sigmoid colon displaced to the left by a large pelvic mass. Assessment of stomach limited by under distention Appendix: No evidence of appendicitis. PELVIS: Bladder: Unremarkable as visualized. Contains no calcified stones. Reproductive: . A lobulated soft tissue mass, possibly arising from the uterus, measuring approximately 1.5 x 1.2 x 1.3 cm AP, laterally, and craniocaudad occupies most of the pelvis, displacing the bladder anteriorly and displacing the rectum and sigmoid colon posteriorly and to the left. The lesion contains several foci of air and areas of increased density which could represent hemorrhage. There is poor definition of fat planes between adjacent bowel loops, including the sigmoid colon and left aspect of the mass, This report is only to be considered final once signed by the Provider(s) as displayed in the "<Electronically Signed by >" field (s). Absence of a signature indicates the report is in a draft status and still needs to be finalized. In the event this document was created by someone other than the signing Provider, the individual initiating the document will be listed in the "Entered by:" or "Dictated by:" [email or web address] Patient Name:JUAN KIRKLAND MR: [id number] : 1945 ABDOMEN and PELVIS: Intraperitoneal space: No free air or significant free fluid. Bones/joints: Spondylosis and dorsal spondylosis. No acute fracture or aggressive osseous lesions. Soft tissues: 1 x 0.7 cm subcutaneous nodule in the right lower quadrant.. Vasculature: No abdominal aortic aneurysm. Lymph nodes: No enlarged lymph nodes identified, but assessment is limited by lack of contrast material and confluent mass lesion in the pelvis.. IMPRESSION: 1. Large soft tissue mass occupying most of the pelvis, possibly arising from the uterus containing foci of air. Fistulous communication with adjacent bowel is not excluded. Assessment is limited by lack of oral and IV contrast. Areas of increased density within the lesion could represent hemorrhage. Further evaluation with contrast-enhanced CT or MRI is recommended for further characterization. 2. No bowel obstruction. 3. Small subcutaneous nodule in the right lower quadrant. Correlate with clinical exam. To contact [facility] with a general question: Operations Center - [phone] For direct physician to physician contact: Physician Hotline - [phone] [facility] ([facility] Facility ID #[id number]) <Electronically signed by Anupama Rapp MD in OV> 01/08/192135 Dictated By: Anupama Rapp MD Dictated Date/Time: 01/08/192135 Transcribed Date/Time: Copy to: Assessment - Problem List Assessment: Patient Problems Hematochezia (Acute) AVM (arteriovenous malformation) of colon (Chronic) Pelvic mass (Acute) Family history of ovarian cancer (Chronic) Family history of colon cancer (Chronic) Raynauds phenomenon (Chronic) Bleeding hemorrhoids (Chronic) Anemia (Acute) Subclinical hypothyroidism (Chronic) Plan: Hematochezia (Acute) AVM (arteriovenous malformation) of colon (Chronic)Anemia ( Acute) Juan Kirkland presents with a lower GI bleed - orange blood with clots. She has a history of an AVM of the hepatic flexure of the colon. She has no history of diverticulosis. She has a large pelvic mass - although at this time it is not clear how this would cause colonic hemorrhage. It may be an incidental finding. She continues to have blood in her stool (patient history). We will progress her diet and continue to check for fecal occult blood. Her hemoglobin is stable Pelvic mass (Acute) I will check an MRI of this pelvic mass and have Dr. Demarcus Post consult Family history of ovarian cancer (Chronic), she also has a personal history of fibroids Family history of colon cancer (Chronic) Raynauds phenomenon (Chronic) Bleeding hemorrhoids (Chronic) not the current problem= Subclinical hypothyroidism (Chronic) this is on her problem list - I will recheck her TSH. I discussed the above with the patient. She understands the requirement for another night in the hospital for investigation and also because she requires continued surveillance to determine if she has fresh hemorrhage.
[2019-01-10] MEDS ORDERED: Gadoteridol* (CONTRAST) 279.3 MG/ML 10 ML IV ONE (10:13)
[2019-01-10] MEDS ORDERED: Iohexol 300* (CONTRAST) 10 ML SDV IV ONE (14:58)
--- NOTE | 2019-01-10 16:27 | PN ---
Progress Note - Progress Note Date of Service: 01/10/19 Note: pt describes brown-orange stools; she thinks that there is blood in them, but less than before; no N/V MRI, CT, Pelvic US pending VS; 97.4, 117/67, 88 gen: nad, alert abd: +bs, palpable mass Hgb 11.5,11.6, 11.7 BUN 19 1. Anemia-----go in 2017 without culprit, colonoscopy, egd, capsule; maybe AVM in hepatic flexure; no signs of active bleeding, would only scope if large amt of blood, or significant decreased Hgb; continue to monitor 2. Pelvic mass-----per Primary team Juve Cisneros MD [facility] [phone]
--- NOTE | 2019-01-10 19:18 | HP ---
History of Present Illness - History of Present Illness Reason for Visit: CONSULTATION REPORT (requesting physician Dr. Mukesh South) History of Present Illness: Mrs. Kirkland is a 73 y/o postmenopausal lady with a known history of Fibroids and menorrhagia. She was admitted to the hospital with rectal bleeding and incidentally found to have a large pelvic mass which appears to originate from the posterior/fundal aspect of the uterus on CT scan with contrast. She denies vaginal bleeding, pelvic pain/pressure, urinary symptoms, weight loss, or change in satiety. The patient denies a history of endometriosis, infertility, Family history of ovarian cancer. Her PSHx is significant for Dilation/curettage in the past for menorrhagia secondary to uterine fibroids and anemia. PFHx is significant for Breast and Colon cancer - Past Medical History WATERSHED TENDER: Migraine Gastrointestinal: Hemorrhoids Musculoskeletal: Other - Scoliosis Rheumatologic: Other - Arthritis, Raynauds Grav: 2 Para: 2 Ab: 0 - Past Surgical History Past Surgical History: Other - Dilation/Curettage for menorrhagia and Hemorrhoidectomy in - Past Family History Family History: Cancer - Paternal grandmother-Breast Cancer, Maternal grandmother Colon Cancer, Brother Esophageal Cancer, CAD - Father at age 48 Myocardial infarct, Other - Sister and Daughte- Uterine Fibroids - Past Social History Smoke: No Alcohol: Rare Drugs: None - Health Maintenance Health Maintenance: Pap Smear - No history of abnormal pap smears, Mammogram - last done 2016-WNL, Colonoscopy - 2018 benign polyp Review of Systems - Review of Systems Gastrointestinal: Positive: Other - Rectal bleeding Genitourinary: Positive: Other - Denies vaginal bleeding - Medications/Allergies Allergies/Adverse Reactions: Allergies Allergy/AdvReac Type Severity Reaction Status Date / Time ampicillin Allergy Intermediate Rash Verified 01/08/19 19:38 Medications: Current Medications Ondansetron HCl (Zofran Inj*) 4 mg IV Q4H PRN PRN Reason: NAUSEA/VOMITING Pantoprazole Sodium (Protonix Iv*) 40 mg IV BID RAMOS Last Admin: 01/10/19 07:56 Dose: 40 mg Exam - Exam Vital Signs: Vital Signs (72 hours) 01/08/19 01/08/19 01/08/19 18:58 19:34 19:35 Temperature 98.5 F Pulse Rate 91 84 83 Respiratory 14 20 23 Rate Blood Pressure 126/77 128/79 (mmHg) O2 Sat by Pulse 96 98 96 Oximetry 01/08/19 01/08/19 01/08/19 20:00 20:05 20:35 Temperature Pulse Rate 77 81 80 Respiratory 19 20 28 Rate Blood Pressure 105/69 129/72 (mmHg) O2 Sat by Pulse 96 98 96 Oximetry 01/08/19 01/08/19 01/08/19 21:00 21:05 21:13 Temperature 98.5 F Pulse Rate 82 81 80 Respiratory 19 14 16 Rate Blood Pressure 91/73 91/73 (mmHg) O2 Sat by Pulse 97 98 98 Oximetry 01/08/19 01/08/19 01/08/19 21:27 21:35 22:30 Temperature 98.5 F 98.2 F Pulse Rate 80 85 100 Respiratory 23 18 20 Rate Blood Pressure 118/84 113/65 114/69 (mmHg) O2 Sat by Pulse 98 96 96 Oximetry 01/08/19 01/09/19 01/09/19 23:00 06:00 10:53 Temperature 98.1 F 97.1 F Pulse Rate 86 79 Respiratory 16 18 16 Rate Blood Pressure 128/71 123/72 (mmHg) O2 Sat by Pulse 98 96 Oximetry 01/09/19 01/09/19 01/09/19 15:52 19:34 20:00 Temperature 98 F 98.1 F Pulse Rate 75 77 Respiratory 22 18 16 Rate Blood Pressure 108/74 114/68 (mmHg) O2 Sat by Pulse 99 96 Oximetry 01/09/19 01/10/19 01/10/19 22:56 03:07 07:24 Temperature 98.4 F 97.7 F 97.7 F Pulse Rate 75 85 69 Respiratory 19 17 14 Rate Blood Pressure 103/62 122/82 127/74 (mmHg) O2 Sat by Pulse 97 99 100 Oximetry 01/10/19 01/10/19 08:00 13:42 Temperature 97.4 F Pulse Rate 88 Respiratory 14 16 Rate Blood Pressure 117/67 (mmHg) O2 Sat by Pulse Oximetry General: Alert, Oriented x3, Cooperative, No acute distress Abdomen: Normal bowel sounds, Soft, No tenderness, Other - Firm non tender abdominal pelvic mass palpable just below umbilicus Psych/Mental Status: Mental status NL Physical Exam - Physical Exam Pelvic Exam: External Exam Normal - External genitalia-Mons pubis, clitoris/jaramillo , Labia, introitus, perineum and external rectum all WNL, Mass - Bimanual; exam revealed a normal palpable cervix, smooth parametrium and rectovaginal space and a grossly enlarged , smooth , non tender mass filling the pelvis consistent with mass noted in radiology. Ovaries are not distinctibly palpable on exam. No blood noted on the glove after vaginal exam, nor on rectovaginal exam. Lab Results - Lab Results Lab Results: 01/08/19 01/08/19 01/08/19 19:27 19:27 19:27 WBC 22.5 H RBC 4.28 Hgb 12.6 Hct 39 MCV 91 MCH 29 MCHC 32 RDW 13 Plt Count 336 MPV 8.1 Neut % (Auto) 83.3 Lymph % (Auto) 8.7 [place] % (Auto) 7.0 Eos % (Auto) 0.4 Baso % (Auto) 0.6 Absolute Neuts (auto) 18.8 H Absolute Lymphs (auto) 2.0 Absolute Monos (auto) 1.6 H Absolute Eos (auto) 0.1 Absolute Basos (auto) 0.1 Absolute Nucleated RBC 0.0 Nucleated RBC % 0.0 INR (Anticoag Therapy) 1.15 H APTT 33.3 Sodium 136 Potassium 4.0 Chloride 103 Carbon Dioxide 27 Anion Gap 6 BUN 21 Creatinine 1.05 H Est GFR ( Amer) 61.8 Est GFR (Non-Af Amer) 51.1 BUN/Creatinine Ratio 20.0 Glucose 109 H Calcium 9.4 Total Bilirubin 0.80 AST 45 H ALT 27 Alkaline Phosphatase 74 Total Protein 6.8 Albumin 4.1 Globulin 2.7 Albumin/Globulin Ratio 1.5 Urine Color Urine Appearance Urine pH Ur Specific Swisher Urine Protein Urine Ketones Urine Blood Urine Nitrate Urine Bilirubin Urine Urobilinogen Ur Leukocyte Esterase Urine Glucose Blood Type Antibody Screen 01/08/19 01/09/19 01/09/19 19:27 02:13 04:45 WBC 16.2 H RBC 3.88 Hgb 11.4 L Hct 35 MCV 90 MCH 29 MCHC 33 RDW 14 Plt Count 275 MPV 8.0 Neut % (Auto) 81.5 Lymph % (Auto) 9.6 [place] % (Auto) 7.6 Eos % (Auto) 0.8 Baso % (Auto) 0.5 Absolute Neuts (auto) 13.2 H Absolute Lymphs (auto) 1.6 Absolute Monos (auto) 1.2 H Absolute Eos (auto) 0.1 Absolute Basos (auto) 0.1 Absolute Nucleated RBC 0.0 Nucleated RBC % 0.0 INR (Anticoag Therapy) APTT Sodium Potassium Chloride Carbon Dioxide Anion Gap BUN Creatinine Est GFR ( Amer) Est GFR (Non-Af Amer) BUN/Creatinine Ratio Glucose Calcium Total Bilirubin AST ALT Alkaline Phosphatase Total Protein Albumin Globulin Albumin/Globulin Ratio Urine Color Yellow Urine Appearance Clear Urine pH 6.0 Ur Specific Swisher 1.016 Urine Protein Negative Urine Ketones Negative Urine Blood Negative Urine Nitrate Negative Urine Bilirubin Negative Urine Urobilinogen Negative Ur Leukocyte Esterase Negative Urine Glucose Negative Blood Type A Positive Antibody Screen Negative 01/09/19 01/09/19 01/09/19 06:36 06:38 17:48 WBC 14.6 H RBC 3.99 Hgb 11.7 L 11.6 L Hct 36 36 MCV 91 MCH 29 MCHC 32 RDW 13 Plt Count 287 MPV 8.0 Neut % (Auto) 82.4 Lymph % (Auto) 8.1 [place] % (Auto) 7.6 Eos % (Auto) 1.3 Baso % (Auto) 0.6 Absolute Neuts (auto) 12.0 H Absolute Lymphs (auto) 1.2 Absolute Monos (auto) 1.1 H Absolute Eos (auto) 0.2 Absolute Basos (auto) 0.1 Absolute Nucleated RBC 0.0 Nucleated RBC % 0.1 INR (Anticoag Therapy) APTT Sodium 139 Potassium 4.1 Chloride 105 Carbon Dioxide 29 Anion Gap 5 BUN 19 Creatinine 0.89 Est GFR ( Amer) 74.8 Est GFR (Non-Af Amer) 61.8 BUN/Creatinine Ratio 21.3 H Glucose 93 Calcium 9.0 Total Bilirubin 0.70 AST 39 ALT 23 Alkaline Phosphatase 66 Total Protein 5.8 L Albumin 3.5 Globulin 2.3 Albumin/Globulin Ratio 1.5 Urine Color Urine Appearance Urine pH Ur Specific Swisher Urine Protein Urine Ketones Urine Blood Urine Nitrate Urine Bilirubin Urine Urobilinogen Ur Leukocyte Esterase Urine Glucose Blood Type Antibody Screen 01/10/19 06:04 WBC 9.2 RBC 3.91 Hgb 11.5 L Hct 35 MCV 90 MCH 30 MCHC 33 RDW 13 Plt Count 267 MPV 8.2 Neut % (Auto) 78.3 Lymph % (Auto) 9.6 [place] % (Auto) 8.4 Eos % (Auto) 2.6 Baso % (Auto) 1.1 Absolute Neuts (auto) 7.2 Absolute Lymphs (auto) 0.9 L Absolute Monos (auto) 0.8 Absolute Eos (auto) 0.2 Absolute Basos (auto) 0.1 Absolute Nucleated RBC 0.0 Nucleated RBC % 0.0 INR (Anticoag Therapy) APTT Sodium Potassium Chloride Carbon Dioxide Anion Gap BUN Creatinine Est GFR ( Amer) Est GFR (Non-Af Amer) BUN/Creatinine Ratio Glucose Calcium Total Bilirubin AST ALT Alkaline Phosphatase Total Protein Albumin Globulin Albumin/Globulin Ratio Urine Color Urine Appearance Urine pH Ur Specific Swisher Urine Protein Urine Ketones Urine Blood Urine Nitrate Urine Bilirubin Urine Urobilinogen Ur Leukocyte Esterase Urine Glucose Blood Type Antibody Screen Results - Results Lab Results: Laboratory Results - last 24 hr 01/10/19 06:04 WBC 9.2 RBC 3.91 Hgb 11.5 L Hct 35 MCV 90 MCH 30 MCHC 33 RDW 13 Plt Count 267 MPV 8.2 Neut % (Auto) 78.3 Lymph % (Auto) 9.6 [place] % (Auto) 8.4 Eos % (Auto) 2.6 Baso % (Auto) 1.1 Absolute Neuts (auto) 7.2 Absolute Lymphs (auto) 0.9 L Absolute Monos (auto) 0.8 Absolute Eos (auto) 0.2 Absolute Basos (auto) 0.1 Absolute Nucleated RBC 0.0 Nucleated RBC % 0.0 Radiology Results: Patient Name: JUAN KIRKLAND Medical Record#: [id number] Ordering Physician: [place] Gann MD Acct.#: [id number] : 1945 Age: 73 Sex: F Location: [address] [place] [address] MEDICAL Exam Date: 01/10/19 1530 ADM Status: ADM IN Order Information: MRI PELVIS W/WO Accession Number: [id number] CPT: 90487 INDICATION: Pelvic mass. COMPARISON: Comparison is made with a prior CT of the abdomen and pelvis from January 08, 2018. TECHNIQUE: Axial, sagittal and coronal T1 and T2-weighted images of the pelvis were obtained. In addition axial, sagittal and coronal T1-weighted images were obtained following intravenous injection of 12 ml of ProHance nonionic contrast. FINDINGS: There is a large heterogeneous signal intensity mass located superior to the urinary bladder and uterus. This measures 19.1 cm AP by 10.0 cm craniocaudad by 11.0 cm transverse. This demonstrates heterogeneous contrast enhancement with central areas of fluid signal intensity likely representing necrosis. The mass is seen separate from the uterus and bladder. There appears to be faint visualization of both ovaries which are grossly normal in appearance although recommend ultrasonography for confirmation. The origin of the mass is unclear. The bowel is not well defined on this MRI study. There is a small amount of free intraperitoneal fluid present within the pelvis. No significant focal osseous abnormality is seen. The results of this exam were discussed with Dr. South. IMPRESSION: 1. THERE IS A LARGE MALIGNANT APPEARING MASS PRESENT IN THE PELVIS WITH UNCLEAR ORIGIN. RECOMMEND A PELVIC ULTRASOUND TO EXCLUDE OVARIAN ORIGIN. IN ADDITION RECOMMEND A CONTRAST-ENHANCED CT OF THE ABDOMEN AND PELVIS WITH BOTH INTRAVENOUS AND ORAL CONTRAST FOR FURTHER DEFINITION. 2. SMALL AMOUNT OF FREE INTRAPERITONEAL FLUID IN THE PELVIS. <Electronically signed by Ruslan Santiago MD in OV> 01/10/19 111 Dictated By: Ruslan Santiago MD Dictated Date/Time: 01/10/19 111 Transcribed Date/Time: 01/10/19 1102 Copy to: CC:Mukesh South MD; [place] Gann MD; Paz Garcia MD; Juve Cisneros MD; Syd Espino MD; Demarcus Post MD This report is only to be considered final once signed by the Provider(s) as displayed in the "<Electronically Signed by >" field (s). Absence of a signature indicates the report is in a draft status and still needs to be finalized. In the event this document was created by someone other than the signing Provider, the individual initiating the document will be listed in the "Entered by:" or "Dictated by:" andrews. 1 of 2 Patient Name: JUAN KIRKLAND Medical Record#: [id number] Ordering Physician: Mukesh South MD Acct.#: [id number] : 1945 Age: 73 Sex: F Location: [address] - MEDICAL Exam Date: 01/10/19 1129 ADM Status: ADM IN Order Information: CT ABD/PEL W Accession Number: [id number] CPT: 19857 CLINICAL HISTORY: large pelvic/abdo mass COMPARISON: CT dated January 08, 2019, MRI dated January 10, 2019, ultrasound dated January 10, 2019 TECHNIQUE: Multiple contiguous axial CT scans were obtained of the abdomen and pelvis after the administration of intravenous contrast. Coronal and sagittal multiplanar reformations are submitted for review. Oral contrast was administered. Delayed images were obtained through the abdomen. FINDINGS: LUNG BASES: The lung bases are clear. LIVER: The liver is diffusely low in attenuation compared to the spleen. There are no focal hepatic parenchymal masses. BILE DUCTS: There is no intrahepatic or extrahepatic biliary dilatation. GALLBLADDER: The gallbladder is normal, without pericholecystic inflammatory change. PANCREAS: The pancreas is normal, without mass or ductal dilatation. SPLEEN: Normal in size and appearance. UPPER GI TRACT: Evaluation of the gastrointestinal tract is limited by incomplete gastric distention. The upper GI tract is unremarkable. SMALL BOWEL AND MESENTERY: The small bowel is normal in contour, course, and caliber. There is no obstruction or dilatation. COLON: The rectum and distal sigmoid colon are displaced by the pelvic mass further described below. There is no obstruction. Oral contrast reaches the distal rectum. ADRENALS: Normal bilaterally. KIDNEYS: Simple renal cysts are noted. There is no significant hydronephrosis. There is no nephrolithiasis. BLADDER: The bladder is smooth in contour. PELVIC ORGANS: There is a peripherally enhancing centrally necrotic mass within the pelvis measuring 13.3 x 17.2 x 10.6 cm in size. This is contiguous with the posterior body of the uterus. This is vascularized with multiple large feeding vessels and draining veins. Again noted are areas of gas density within the mass. The ovaries are not well- visualized on the current examination. AORTA: The aorta is normal. IVC: Unremarkable LYMPH NODES: There is no lymphadenopathy by size criteria. ABDOMINAL WALL: There is no evidence for abdominal wall hernia. BONES AND SOFT TISSUES: There is a scoliotic curvature of the spine. Degenerative changes noted of the spine. OTHER: None IMPRESSION: This report is only to be considered final once signed by the Provider(s) as displayed in the "<Electronically Signed by >" field (s). Absence of a signature indicates the report is in a draft status and still needs to be finalized. In the event this document was created by someone other than the signing Provider, the individual initiating the document will be listed in the "Entered by:" or "Dictated by:" andrews. 1 of 2 Patient Name: JUAN KIRKLAND Medical Record#: [id number] Ordering Physician: Mukesh South MD Acct.#: [id number] : 1945 Age: 73 Sex: F Location: [address] [place] [address] MEDICAL Exam Date: 01/10/191127 ADM Status: ADM IN Order Information: US PELVIC Accession Number: [id number] CPT: 00539 Indication: Large pelvic mass. Real-time sonography of the pelvis was performed. The uterus measures 8.1 x 2.7 x 6.0 cm. Endometrial echo measures 0.4 cm. Left ovary measures 3.1 x 1.5 x 1.6 cm. Right ovary is not well demonstrated. There is a large pelvic mass measuring 19.2 x 8.6 x 12.0 cm. Possibility of an ovarian neoplasm should BE considered. IMPRESSION: Large pelvic mass separate from the uterus and posterior to the uterus. This is slightly right of midline although extends both to the right and left lower quadrants. Suggestion of the left ovary is noted. <Electronically signed by Rekha Maguire MD in OV> 01/10/191228 Dictated By: Rekha Maguire MD Dictated Date/Time: 01/10/191228 Transcribed Date/Time: 01/10/191222 Copy to: CC:Mukesh South MD; Paz Garcia MD; Juve Cisneros MD; Syd Espino MD; Demarcus Post MD Imaging - [facility] [address] [address] ph [phone]) ph ([phone]) ph ([phone]) This report is only to be considered final once signed by the Provider(s) as displayed in the "<Electronically Signed by >" field (s). Absence of a signature indicates the report is in a draft status and still needs to be finalized. In the event this document was created by someone other than the signing Provider, the individual initiating the document will be listed in the "Entered by:" or "Dictated by:" andrews. 1 of 1 Assessment and Plan - Assessment -: 73 y/o with known history of uterine fibroids with an enlarged pelvic mass, rectal bleeding with poorly visualized ovaries. Ca 125 pending. She is otherwise stable in no acute distress or need for emergency treatment. Differential diagnoses; Necrotic Uterine fibroids, vs Sarcoma, the mass does not appear to be separate from the uterus such as an ovarian tumor. - Plan Surgical Plan of Care: Consult - Please consult with Gynecologic Oncology for further evaluation and Recommendations. I can see Mrs. Kirkland after her consultation with Nurse Rn Bsn/Onc.
[2019-01-11 06:09] LABS: ABS Basophils 0.1 10^3/ul (0-0.2); ABS Eosinophils 0.2 10^3/ul (0-0.6); ABS Lymphocytes 1.1 10^3/ul (1.0-4.8); ABS Monocytes 0.7 10^3/ul (0-0.8); ABS Neutrophils 6.3 10^3/ul (1.5-7.7); Eosinophil % 2.3 %; Hematocrit 37 % (35-47); Hemoglobin 12.3 g/dL (12.0-16.0); Lymphocyte % 13.1 %; Mean Corpuscular HGB Conc 34 g/dL (31-36); Mean Corpuscular Hemoglobin 30 pg (27-31); Mean Corpuscular Volume 89 fL (80-97); Mean Platelet Volume 8.3 fL (7.4-10.4); Platelet Count 301 10^3/uL (150-450); Red Cell Distribution Width 13 % (10-15); White Blood Count 8.4 10^3/uL (3.5-10.8)
[2019-01-11 06:29] LABS: BUN/Creatinine Ratio 12.5 (8-20); Calcium 9.4 mg/dL (8.6-10.3); EGFR African American 75.8 (>60); EGFR Non-African American 62.6 (>60); Potassium 3.9 mmol/L (3.5-5.0)
[2019-01-11 07:34] VITALS: BP 125/69
--- NOTE | 2019-01-11 07:52 | PN ---
Subjective - Subjective Reason for Note: Discharge Note History: See dictated discharge summary She is feeling well - no pain or hemorrhage. Active Problems: Active Problems Anemia (Acute) D64.9 Hematochezia (Acute) K92.1 Pelvic mass (Acute) R19.00 AVM (arteriovenous malformation) of colon (Chronic) K55.20 Bleeding hemorrhoids (Chronic) K64.9 Family history of colon cancer (Chronic) Z80.0 Family history of ovarian cancer (Chronic) Z80.41 Raynauds phenomenon (Chronic) I73.00 Subclinical hypothyroidism (Chronic) E03.9 Current Medications: Current Medications Ondansetron HCl (Zofran Inj*) 4 mg IV Q4H PRN PRN Reason: NAUSEA/VOMITING Pantoprazole Sodium (Protonix Iv*) 40 mg IV BID RAMOS Last Admin: 01/10/19 21:16 Dose: 40 mg Home Medications: Home Medications Medication Instructions Recorded Confirmed Type Cholecalciferol (Vitamin D3) 1,000 unit PO DAILY 04/12/18 01/08/19 History [Vitamin D3] Ena [place]/Linoleic/Gamoleni 1,000 mg PO DAILY 04/12/18 01/08/19 History [Evening [place] 1,000 mg Sftg] Glucosamine/D3/Boswellia Pauly 1 tab PO DAILY 04/12/18 01/08/19 History [Glucosamine Complex Tablet] Lutein [Natural Lutein] 20 mg PO DAILY 04/12/18 01/08/19 History Melatonin 5 mg PO DAILY 04/12/18 01/08/19 History Multivitamins/Minerals TAB* 1 tab PO EVERY OTHER DAY #45 tab 04/15/18 01/08/19 Rx [Theragran/minerals TAB*] Allergies: Allergies Allergy/AdvReac Type Severity Reaction Status Date / Time ampicillin Allergy Intermediate Rash Verified 01/08/19 19:38 Objective - Vital Signs Vital Signs: Vital Signs 01/10/19 01/10/19 01/10/19 08:00 13:42 20:00 Temperature 97.4 F Pulse Rate 88 Respiratory 14 16 16 Rate Blood Pressure 117/67 (mmHg) O2 Sat by Pulse Oximetry 01/10/19 01/11/19 01/11/19 23:44 03:51 07:33 Temperature 97.9 F 98.2 F 97.7 F Pulse Rate 72 65 72 Respiratory 18 16 20 Rate Blood Pressure 108/68 109/66 125/69 (mmHg) O2 Sat by Pulse 97 96 98 Oximetry - Intake and Output Intake and Output: Intake & Output 01/08/19 01/09/19 01/10/19 01/11/19 11:59 11:59 11:59 11:59 Intake Total 0 1680 1910 Output Total 250 1000 250 Balance -024 174 5229 Weight 135 lb 8 oz 135 lb 8 oz 135 lb Intake: Oral 0 16790 Output: Urine 250 1000 0 Liquid Stool 250 Other: Estimated Void Medium Medium Date of Last Bowel 01/09/19 Movement # Bowel Movements 0 0 0 # Voids 1 0 ADLs: Meal Record Start: 01/08/19 21: 36 Freq: DAILY@0900,1400,1800 Status: Active Protocol: Created 01/08/19 21:36 System (Rec: 01/08/19 21:36 System MED-M03) Document 01/09/19 08:59 [id number] (Rec: 01/09/19 09:00 [id number] MED-C09) Document 01/09/19 13:08 [id number] (Rec: 01/09/19 13:09 [id number] MED-C09) Document 01/09/19 17:48 [id number] (Rec: 01/09/19 17:49 [id number] MED-C04) Document 01/10/19 09:00 [id number] (Rec: 01/10/19 09:41 [id number] MED-C11) Document 01/10/19 13:13 [id number] (Rec: 01/10/19 13:13 [id number] MED-C11) Document 01/10/19 18:00 [id number] (Rec: 01/10/19 18:43 [id number] MED-C09) Intake and Output Start: 01/08/19 19: 03 Freq: Status: Active Protocol: Created 01/08/19 19:03 System (Rec: 01/08/19 19:03 System ED-C24) Intake and Output Start: 01/08/19 21: 36 Freq: DAILY@0600,1400,2200 Status: Active Protocol: Created 01/08/19 21:36 System (Rec: 01/08/19 21:36 System MED-M03) Document 01/09/19 06:00 [id number] (Rec: 01/09/19 06:27 [id number] MED-C16) Document 01/09/19 13:08 [id number] (Rec: 01/09/19 13:09 [id number] MED-C09) Document 01/09/19 22:00 [id number] (Rec: 01/09/19 22:04 [id number] MED-C16) Document 01/10/19 05:20 [id number] (Rec: 01/10/19 05:21 [id number] MED-C16) Document 01/10/19 13:12 [id number] (Rec: 01/10/19 13:12 [id number] MED-C11) Document 01/10/19 21:27 [id number] (Rec: 01/10/19 21:27 [id number] MED-C16) Document 01/11/19 06:00 [id number] (Rec: 01/11/19 06:12 [id number] MED-C11) - Physical Exam General: No Cyanosis, No Anemia, No Jaundice, No Clubbing Abdominal Exam: Yes: Soft, Abdominal Mass, Bowel Sounds Present. No: Distention Results - Results Lab Results: Laboratory Results - last 24 hr 01/11/19 01/11/19 05:52 05:52 WBC 8.4 RBC 4.10 Hgb 12.3 Hct 37 MCV 89 MCH 30 MCHC 34 RDW 13 Plt Count 301 MPV 8.3 Neut % (Auto) 75.5 Lymph % (Auto) 13.1 [place] % (Auto) 7.9 Eos % (Auto) 2.3 Baso % (Auto) 1.2 Absolute Neuts (auto) 6.3 Absolute Lymphs (auto) 1.1 Absolute Monos (auto) 0.7 Absolute Eos (auto) 0.2 Absolute Basos (auto) 0.1 Absolute Nucleated RBC 0.0 Nucleated RBC % 0.0 Sodium 139 Potassium 3.9 Chloride 105 Carbon Dioxide 26 Anion Gap 8 BUN 11 Creatinine 0.88 Est GFR ( Amer) 75.8 Est GFR (Non-Af Amer) 62.6 BUN/Creatinine Ratio 12.5 Glucose 101 H Calcium 9.4 Assessment - Problem List Assessment: Patient Problems Anemia (Acute) Hematochezia (Acute) Pelvic mass (Acute) AVM (arteriovenous malformation) of colon (Chronic) Bleeding hemorrhoids (Chronic) Family history of colon cancer (Chronic) Family history of ovarian cancer (Chronic) Raynauds phenomenon (Chronic) Subclinical hypothyroidism (Chronic) Plan: 1. GI hemorrhage - this has stopped. She is no longer anemic. She can go home 2. Large pelvic mass - for referral to Dr. Viviana Rios - gynecological oncologist [facility] Above explained to the patient.
[2019-01-11] MEDS: Pantoprazole IV* 40 MG IV SCH (08:57)
--- NOTE | 2019-01-11 11:24 | DS ---
AMENDED REPORT TO CORRECT DATE OF ADMISSION CC: Dr. Juve Cisneros; Dr. Wallace Bowens; Dr. Demarcus Post; Dr. Viviana Rios, Gynecological Oncology, [facility], * DISCHARGE SUMMARY: DATE OF ADMISSION: 01/09/19 DATE OF DISCHARGE: 01/11/19 DISCHARGE DIAGNOSES: 1. Lower gastrointestinal hemorrhage of unknown source. 2. Large degenerating pelvic mass, possible fibroid, possible sarcoma, possible malignancy of other origin. SECONDARY DIAGNOSES: 1. History of fibroids. 2. History of hemorrhoids. 3. Raynaud's phenomenon. 4. Family history of ovarian cancer and colon cancer. 5. History of colonic arteriovenous malformation. HISTORY: Radha Fraser is a 73-year-old white female. Her presentation is documented in Elizabeth Jacinto NP's admitting history and physical. In short, she presented to the emergency room with a history of bright red blood and clots in her stool, which started 18 hours prior to presentation. She felt mildly weak, but had no other symptoms. She had had a prior thorough workup with Dr. Wallace Bowens for a prior GI hemorrhage on 04/14/18. This included CT angiogram, capsule endoscopy, colonoscopy, and EGD, all of which were negative aside from a AVM found at the hepatic flexure, which was thought to be not responsible for the hemorrhage. Physical examination in the emergency room showed temperature of 98.5, respirations 14, oxygen saturation 97%, blood pressure 126/77. Abdomen was benign. INITIAL DIAGNOSTIC STUDIES: White count 22.5, hemoglobin 12.6, hematocrit 39, platelets 336, INR 1.15. Chemistry was normal. BUN 21, creatinine 1.05, glucose 109. EKG showed normal sinus rhythm. CT scan of the abdomen and pelvis without contrast showed a large soft tissue mass occupying most of the pelvis, arising from the uterus, most likely containing air foci, there were areas of increased density possibly representing hemorrhage. CONSULTATIONS: Juve Cisneros MD; 01/09/19; this is part of the electronic medical record. He discussed possible diverticular bleed, malignancy, noted recent complete workup, doubted ischemic colitis, wondered whether the pelvic mass could be compressing blood vessels that could lead to an occlusive effect for mesenteric ischemia. Demarcus Post MD for Gynecology. His note is part of the electronic medical record. He noted there is an enlarged pelvic mass, rectal bleeding, poorly visualized ovaries, otherwise stable. His assessment or differential was necrotic uterine fibroids versus sarcoma. He did not think it was separate from the uterus and did not think it was an ovarian tumor. Recommended gynecologic/oncology referral to [facility]. HOSPITAL INVESTIGATIONS: Imaging on 01/10/19, pelvic ultrasound, large pelvic mass separate from the uterus, posterior to the uterus, slightly right of midline, extends both to the right and left lower quadrant, suggestion of left ovary noted. CT scan of abdomen and pelvis plus contrast, impression: Large enhancing centrally necrotic mass of the pelvis, possibly uterine in origin. Differential: Malignant degeneration of a uterine fibroid. On 01/10/19, MRI of pelvis, large malignant appearing mass in the pelvis with unclear origin. LABORATORY FINDINGS: Her hemoglobin at presentation was 12.6 and it declined to 11.4 and then on the day of discharge, it was back up to 12.3, otherwise her CBC is normal. Chemistry was normal. I note on 04/15/18, her CA 125 was 11. HOSPITAL COURSE: Despite these findings of hemorrhage and a large pelvic mass, the patient was remarkably asymptomatic during her hospital stay. She denied any pain. No nausea or vomiting. She slowly cleared the blood from her colon such that she had a normal stool on the morning of discharge. She notes that she has felt a distended abdomen for some time. PHYSICAL EXAMINATION ON THE DAY OF DISCHARGE: She is a woman, well perfused. She has no cyanosis, anemia, jaundice, clubbing, or lymphadenopathy. Vital Signs: Temperature 97.4, respirations 16, blood pressure 117/67. Oxygen saturation on room air 98%. She is not in any distress. Cardiovascular system: Pulse regular. Normal character and volume. Venous pressure not elevated. Heart sounds were normal. No added sounds or murmurs. No pedal edema. Respiratory system: Chest expansion full and symmetrical, percussion not resonant, breath sounds vesicular. No crackles or wheezes. Abdominal examination: She has a large mass which is mostly right sided that extends to the iliac region. It is smooth, nontender, and somewhat firm in consistency. Otherwise, she is not distended, has a soft abdomen, and no hepatosplenomegaly. No enlargement of the kidneys. Bowel sounds were present. Nervous system: She is alert and oriented. Cranial nerves II through XII intact. Arms and legs full power. Normal tone and coordination. She is alert and oriented. Normal speech. ASSESSMENT AND PLAN: 1. Lower gastrointestinal hemorrhage. The origin of this hemorrhage remains obscure, clearly this is not a major bleed. I have instructed the patient to arrive in the emergency room on a subsequent acute hemorrhage for a CT angiogram. She will followup with Gastroenterology in due course. 2. Large pelvic mass, differential diagnosis: Degenerating fibroid, sarcomatous transformation of a uterine fibroid or some other pelvic malignancy. I am referring her to Dr. Viviana Rios from [facility] for followup. She will try to get on the cancellation list there. DISCHARGE MEDICATIONS: 1. Iron 325 mg daily together with vitamin C 500 mg daily. 2. Melatonin 5 mg q.h.s. 3. Glucosamine 1 tablet daily. 4. Lutein 20 mg daily. 5. Evening primrose oil 1000 mg daily. 6. Vitamin D3 1000 units daily. 7. Multivitamin 1 a day. FOLLOWUP: She will follow up with me for transition of care visit within the next 2 to 3 days. [id number]/CPS #: [id number] ROSA M
[2019-01-11 12:55] LABS: HE4 Ovarian Cancer Marker 84 pmol/L (<=140)
[2019-01-11 13:30] LABS: Cancer Ag (CA 125), S 15 U/mL (<46)
== END 2019-01-11 10:10 | disposition home or self-care (01) | DRG 379 ==
LOC: ED 18:57 → MED 21:02 → OBSVTOIN 01-09 16:00
PROVIDERS: ADMIT Internal Medicine; ATTEND Internal Medicine
DX: K92.1 Melena (principal); C76.3 Malignant neoplasm of pelvis; I73.00 Raynaud's syndrome without gangrene; M41.9 Scoliosis, unspecified; M19.90 Unspecified osteoarthritis, unspecified site; D21.5 Benign neoplasm of connective and other soft tissue of pelvis; K55.20 Angiodysplasia of colon without hemorrhage; E03.9 Hypothyroidism, unspecified; Z87.19 Personal history of other diseases of the digestive system; Z85.3 Personal history of malignant neoplasm of breast; Z85.038 Personal history of other malignant neoplasm of large intestine; Z80.3 Family history of malignant neoplasm of breast; Z80.0 Family history of malignant neoplasm of digestive organs; Z82.49 Family history of ischemic heart disease and other diseases of the circulatory system; Z88.1 Allergy status to other antibiotic agents; Z87.891 Personal history of nicotine dependence; Z79.899 Other long term (current) drug therapy
CPT/HCPCS: 36415; 72197; 74176; 74177; 76856; 80048; 80053; 81003; 82272; 85014; 85018; 85025; 85610; 85730; 86304; 86305; 86850; 86900; 86901; 93005; 99285; A9579; Q9967

== ENCOUNTER 2019-01-12 11:07 | Emergency (ER) | payer MEDICARE, BC ==
--- NOTE | 2019-01-12 11:28 | ED ---
GI/ HPI - HPI Summary HPI Summary: Pt is a 73 y/o F presenting to the ED with a chief complaint of rectal bleeding. She was here the other day for the same complaint, but the bleeding had resolved. As of this morning, she reports black stool, and around 0830, she passed some maroon-colored clots from her rectum. She also reports being slightly weak. She denies lightheadedness or dizziness. - History of Current Complaint Chief Complaint: EDGIBleed Time Seen by Provider: 01/12/19 11:16 Stated Complaint: SENT BY DR NANCE'S OFFICE PER PT Hx Obtained From: Patient Onset/Duration: Started Days Ago, Still Present Timing: Intermittent, Lasting Hours Severity: Mild Current Severity: Moderate Pain Intensity: 0 Location of Pain: None Associated Signs and Symptoms: Positive: Weakness, Blood w/Stool - clots. Negative: Dizziness, Lightheadedness Aggravating Factor(s): Nothing Alleviating Factor(s): Nothing - Additional Pertinent History Primary Care Physician: [id number] - Allergy/Home Medications Allergies/Adverse Reactions: Allergies Allergy/AdvReac Type Severity Reaction Status Date / Time ampicillin Allergy Intermediate Rash Verified 01/12/19 11:30 Home Medications: Home Medications Ascorbic Acid TAB* [Vitamin C TAB*] 500 mg PO DAILY 01/12/19 [History Confirmed 01/12/19] Ferrous Sulfate TAB* 325 mg PO DAILY 01/12/19 [History Confirmed 01/12/19] PMH/Surg Hx/FS Hx/Imm Hx Previously Healthy: No Endocrine/Hematology History: Denies: Hx Diabetes, Hx Anemia Cardiovascular History: Reports: Other Cardiovascular Problems/Disorders - REYNAUD/S ONLY IN COLD TEMP Denies: Hx Hypercholesterolemia, Hx Hypertension, Hx Pacemaker/ICD GI History: Reports: Hx Gastrointestinal Bleed Denies: Hx Jaundice History: Denies: Hx Renal Disease Musculoskeletal History: Reports: Hx Arthritis - BILAT KNEES, Hx Scoliosis Sensory History: Reports: Hx Cataracts - BILAT, Hx Contacts or Glasses - glasses Denies: Hx Eye Injury, Hx Eye Prosthesis, Hx Glaucoma, Hx Macular Degeneration, Hx Vision Problem, Hx Deafness, Hx Hearing Aid, Hx Hearing Problem , Other Sensory Impairments Opthamlomology History: Reports: Hx Cataracts - BILAT, Hx Contacts or Glasses - glasses Denies: Hx Eye Injury, Hx Eye Prosthesis, Hx Glaucoma, Hx Macular Degeneration, Hx Vision Problem, Other Sensory Impairments Psychiatric History: Denies: Hx Panic Disorder - Cancer History Hx Chemotherapy: No Hx Radiation Therapy: No - Surgical History Surgery Procedure, Year, and Place: T&A1951, LYMPH NODE BIOPSY 1955, D&C 1988, CATARACTS 2016 Hx Anesthesia Reactions: No Infectious Disease History: No Infectious Disease History: Denies: Hx Clostridium Difficile, Hx Hepatitis, Hx Human Immunodeficiency Virus (HIV), Hx of Known/Suspected MRSA, Hx Shingles, Hx Tuberculosis, History Other Infectious Disease, Traveled Outside the [place] in Last 30 Days - Family History Known Family History: Positive: Other - Colon CA, breast CA, parkinson's - Social History Alcohol Use: None Hx Substance Use: No Substance Use Type: Reports: None Hx Tobacco Use: Yes Smoking Status (MU): Former Smoker Type: Cigarettes Have You Smoked in the Last Year: No Review of Systems Positive: Other - blood in stool Neurological: Negative - dizzy, lightheaded Positive: Weakness All Other Systems Reviewed And Are Negative: Yes Physical Exam - Summary Physical Exam Summary: Appearance: well appearing, no pain distress Skin: warm, dry, reflects adequate perfusion Head/face: normal Eyes: EOMI, KRISTOPHER ENT: mucous membranes moist Neck: supple, non-tender Respiratory: CTA, breath sounds present Cardiovascular: RRR, pulses symmetrical Abdomen: R-sided abd/pelvic mass, without tenderness. Bowel Sounds: present Musculoskeletal: normal, strength/ROM intact Neuro: normal, sensory motor intact, A&Ox3 Rectal: Non-inflamed external hemorrhoid. Gross red blood on prior exam. Triage Information Reviewed: Yes Vital Signs On Initial Exam: Initial Vitals Temp Pulse Resp BP Pulse Ox 98.4 F 96 18 133/90 98 01/12/19 11:08 01/12/19 11:08 01/12/19 11:08 01/12/19 11:08 01/12/19 11:08 Vital Signs Reviewed: Yes Diagnostics - Vital Signs Vital Signs Temp Pulse Resp BP Pulse Ox 01/12/19 11:08 98.4 F 96 18 133/90 98 - Laboratory Result Diagrams: 01/12/19 11:29 01/12/19 11:29 Lab Statement: Any lab studies that have been ordered have been reviewed, and results considered in the medical decision making process. - CT CTA abd/pelv CT Interpretation Completed By: Radiologist Summary of CT Findings: 1. LARGE MALIGNANT MASS PRESENT WITHIN THE PELVIS UNCHANGED FROM THE RECENT PRIOR STUDY. THERE IS GAS WITHIN THE MASS POSSIBLY REPRESENTING FISTULOUS COMMUNICATION WITH THE ADJACENT COLON. 2. THE DELAYED IMAGES WERE NOT OBTAINED LIMITING EVALUATION FOR GI BLEEDING. ED physician has reviewed this report. GIGU Course/Dx - Course Course Of Treatment: Nurse's notes reviewed. Patient is well-known to me as I saw her last week for the same. Rectal bleeding is minor and her hemoglobin is stable. CT angiogram shows concern of possible fistula from her mass in the abdomen. She has follow-up with this next week in [place]. Dr. nance will see her in the next 2 days and wants an outpatient hemoglobin which was ordered for tomorrow. - Diagnoses Differential Diagnoses - Female: Other - Diverticular bleeding, fistula, AVM Provider Diagnoses: Rectal bleeding, Uterine mass Discharge - Sign-Out/Discharge Documenting (check all that apply): Patient Departure Patient Received Moderate/Deep Sedation with Procedure: No - Discharge Plan Condition: Improved Disposition: HOME Patient Education Materials: Rectal Bleeding (ED) Referrals: Mukesh Nance MD [Primary Care Provider] - Additional Instructions: Return to outpatient laboratory for a blood count to be done tomorrow. Follow- up with Dr. nance. Return with heavy bleeding, weakness, feeling like your going to pass out, worse or other concerns. - Billing Disposition and Condition Condition: IMPROVED Disposition: Home - Attestation Statements Document Initiated by Rishabh: Yes Documenting Scribe: Bri Ott Provider For Whom Rishabh is Documenting (Include Credential): Hever Tejeda MD. Scribe Attestation: IBri, scribed for Hever Tejeda MD. on 01/12/19 at 1748. Scribe Documentation Reviewed: Yes Provider Attestation: The documentation as recorded by the Bri moreira accurately reflects the service I personally performed and the decisions made by me, Hever Tejeda MD. Status of Scribe Document: Viewed Consult Consult: 1216- I spoke with Dr. Nance who requested a Hgb test order be placed for the patient to do tomorrow, and he will follow up with her otherwise.
[2019-01-12] MEDS ORDERED: Iohexol 350* (CONTRAST) 500 ML MDV IV ONE (11:29)
[2019-01-12 11:37] LABS: ABS Basophils 0.1 10^3/ul (0-0.2); ABS Eosinophils 0.2 10^3/ul (0-0.6); ABS Lymphocytes 1.2 10^3/ul (1.0-4.8); ABS Monocytes 1.2 10^3/ul (0-0.8); Eosinophil % 1.3 %; Hematocrit 37 % (35-47); Hemoglobin 12.3 g/dL (12.0-16.0); Lymphocyte % 8.6 %; Mean Corpuscular HGB Conc 33 g/dL (31-36); Mean Corpuscular Hemoglobin 30 pg (27-31); Mean Corpuscular Volume 89 fL (80-97); Platelet Count 387 10^3/uL (150-450); Red Blood Count 4.16 10^6 /uL (3.70-4.87); Red Cell Distribution Width 13 % (10-15); White Blood Count 13.7 10^3/uL (3.5-10.8)
[2019-01-12 11:52] LABS: BUN/Creatinine Ratio 21.2 (8-20); Calcium 9.6 mg/dL (8.6-10.3); EGFR African American 66.2 (>60); EGFR Non-African American 54.7 (>60); Potassium 4.6 mmol/L (3.5-5.0)
[2019-01-12 13:42] VITALS: BP 102/75
== END 2019-01-12 12:35 | disposition home or self-care (01) ==
LOC: ED 11:07
DX: K62.5 Hemorrhage of anus and rectum (principal); N85.8 Other specified noninflammatory disorders of uterus; R53.1 Weakness; Z88.0 Allergy status to penicillin; Z87.891 Personal history of nicotine dependence
CPT/HCPCS: 36415; 74174; 80048; 85025; 99283; Q9967

== ENCOUNTER 2020-05-01 23:18 | Inpatient (IN) ==
[2020-05-01] MEDS ORDERED: Ondansetron 4 mg VIAL 2 MG/ML 2 ml VIAL IV ONE (23:44)
[2020-05-01] MEDS ORDERED: Morphine 4 MG/ML VIAL (1 ml) IV ONE (23:44)
[2020-05-01] MEDS ORDERED: NS 0.9% 1000 ml BAG 1,000 ML IV ONE (23:44)
[2020-05-02 00:23] LABS: ABS Lymphocytes 0.7 10^3/ul (1.0-4.8); ABS Monocytes 0.4 10^3/ul (0-0.8); ABS Neutrophils 9.5 10^3/ul (1.5-7.7); Hematocrit 39 % (35-47); Hemoglobin 13.2 g/dL (12.0-16.0); Lymphocyte % 6.3 %; Mean Corpuscular HGB Conc 34 g/dL (31-36); Mean Corpuscular Hemoglobin 33 pg (27-31); Mean Corpuscular Volume 97 fL (80-97); Mean Platelet Volume 8.5 fL (7.4-10.4); Platelet Count 231 10^3/uL (150-450); Red Blood Count 3.97 10^6 /uL (3.70-4.87); Red Cell Distribution Width 13 % (10-15); White Blood Count 10.6 10^3/uL (3.5-10.8)
[2020-05-02 00:40] LABS: ALT 29 U/L (7-52); AST 29 U/L (13-39); Albumin 4.8 g/dL (3.2-5.2); Alkaline Phosphatase 55 U/L (34-104); Anion Gap 15 mmol/L (2-11); BUN/Creatinine Ratio 15.1 (8-20); Blood Urea Nitrogen 16 mg/dL (6-24); C Reactive Protein < 1.00 mg/L (<8.01); CO2 Carbon Dioxide 25 mmol/L (22-32); Calcium 9.9 mg/dL (8.6-10.3); Chloride 97 mmol/L (101-111); EGFR African American 60.8 (>60); EGFR Non-African American 50.3 (>60); Globulin 2.4 g/dL (2-4); Glucose 229 mg/dL (70-100); Lipase 28 U/L (11.0-82.0); Potassium 2.9 mmol/L (3.5-5.0); Sodium 137 mmol/L (135-145); Total Protein 7.2 g/dL (6.4-8.9)
[2020-05-02 01:21] LABS: Urine Appearance Clear; Urine Bilirubin Negative (Negative); Urine Blood Negative (Negative); Urine Color Straw; Urine Glucose 3+(>=500 mg/dL) (Negative); Urine Ketones 1+ (Negative); Urine Nitrite Negative (Negative); Urine Protein Negative (Negative); Urine Urobilinogen Negative (Negative)
[2020-05-02] MEDS: Morphine 4 MG/ML VIAL (1 ml) IV PRN ×3 (01:27→05:54)
[2020-05-02] MEDS ORDERED: Potassium Chlor 10 meq TAB PO ONE (01:52)
[2020-05-02] MEDS ORDERED: Iodixanol (CONTRAST) 320 MG/ML 100 ML SDV IV ONE (02:25)
[2020-05-02] MEDS ORDERED: Piperacillin/Tazobac ADVAN 3.375 GM in NS 0.9% 100 ml BAG 100 ML IV ONE (05:33)
[2020-05-02] MEDS ORDERED: Ondansetron 4 mg VIAL 2 MG/ML 2 ml VIAL IV PRN (05:53)
[2020-05-02] MEDS ORDERED: NS 0.9% w/ 40 Meq KCL 1000 ML 1,000 ML IV SCH (06:00)
[2020-05-02] MEDS: NS 0.9% w/ 40 Meq KCL 1000 ML 1,000 ML IV SCH ×2 (09:12→22:31)
[2020-05-02 09:22] LABS: BUN/Creatinine Ratio 13.8 (8-20); Calcium 9.2 mg/dL (8.6-10.3); EGFR African American 76.4 (>60); EGFR Non-African American 63.1 (>60); Magnesium 1.9 mg/dL (1.9-2.7); Potassium 3.2 mmol/L (3.5-5.0)
[2020-05-02] MEDS ORDERED: Cefepime 1 GM in Dextrose 1 GM/50 ML BAG IV SCH (10:00)
[2020-05-02] MEDS: metroNIDAZOLE IV 500 MG/100ML 500 MG/100 ML BAG IVPB SCH ×2 (10:56→15:41)
[2020-05-02] MEDS: KCL 10 MEQ/50 ML IVPREMIX 10 MEQ/50 ML BAG IV SCH ×2 (12:17→13:50)
[2020-05-03 06:43] LABS: Blood Urea Nitrogen 13 mg/dL (6-24); CO2 Carbon Dioxide 24 mmol/L (22-32); Chloride 105 mmol/L (101-111); EGFR Non-African American 68.6 (>60); Glucose 204 mg/dL (70-100); Sodium 138 mmol/L (135-145)
[2020-05-03 06:49] LABS: Anion Gap 9 mmol/L (2-11)
[2020-05-03] MEDS: NS 0.9% w/ 40 Meq KCL 1000 ML 1,000 ML IV SCH (13:54)
[2020-05-04] MEDS: NS 0.9% w/ 40 Meq KCL 1000 ML 1,000 ML IV SCH ×2 (03:50→15:20)
[2020-05-04 07:47] LABS: BUN/Creatinine Ratio 19.7 (8-20); Calcium 9.1 mg/dL (8.6-10.3); EGFR African American 89.3 (>60); EGFR Non-African American 73.8 (>60); Potassium 4.2 mmol/L (3.5-5.0)
[2020-05-05] MEDS: NS 0.9% w/ 40 Meq KCL 1000 ML 1,000 ML IV SCH (02:43)
[2020-05-05 06:58] LABS: Hematocrit 39 % (35-47); Hemoglobin 13.2 g/dL (12.0-16.0); Mean Corpuscular HGB Conc 34 g/dL (31-36); Mean Corpuscular Hemoglobin 33 pg (27-31); Mean Corpuscular Volume 99 fL (80-97); Mean Platelet Volume 8.8 fL (7.4-10.4); Platelet Count 218 10^3/uL (150-450); Red Blood Count 3.98 10^6 /uL (3.70-4.87); Red Cell Distribution Width 14 % (10-15); White Blood Count 24.2 10^3/uL (3.5-10.8)
[2020-05-05 07:09] LABS: ABS Lymphocytes 0.7 10^3/ul (1.0-4.8); ABS Monocytes 1.5 10^3/ul (0-0.8); Lymphocyte % 2.7 %
[2020-05-05 07:12] LABS: BUN/Creatinine Ratio 25.4 (8-20); C Reactive Protein 225.72 mg/L (<8.01); Calcium 9.3 mg/dL (8.6-10.3); EGFR African American 96.6 (>60); EGFR Non-African American 79.8 (>60); Potassium 4.2 mmol/L (3.5-5.0)
[2020-05-05] MEDS ORDERED: Iodixanol (CONTRAST) 320 MG/ML 100 ML SDV IV ONE (10:54)
[2020-05-05] MEDS ORDERED: Succinylcholine 200 mg VIAL 20 mg/ml 10 ml VIAL (200 mg) ONE (12:54)
[2020-05-05] MEDS ORDERED: Etomidate 20 mg/10 ml 2 MG/ML 10 ml VIAL ONE ×2 (12:54→13:52)
[2020-05-05] MEDS ORDERED: Lidocaine 2% PF 5 ML VIAL ONE (12:54)
[2020-05-05] MEDS ORDERED: Rocuronium 50 mg VIAL 10 mg/ml 5 ml VIAL (50 mg) ONE ×2 (12:55→14:35)
[2020-05-05] MEDS ORDERED: fentaNYL 100 mcg/2 ml 50 MCG/ML VIAL ONE (12:55)
[2020-05-05] MEDS ORDERED: Clindamycin 900 MG/D5W BAG 900 MG/50 ML BAG IVPB ONE (13:30)
[2020-05-05] MEDS ORDERED: HYDROmorphone 1 MG/1 ML SYRINGE ONE (14:09)
[2020-05-05] MEDS ORDERED: Ondansetron 4 mg VIAL 2 MG/ML 2 ml VIAL ONE (14:23)
[2020-05-05] MEDS ORDERED: Dexamethasone IV 4 MG/ML VIAL 1 ml VIAL ONE ×2 (14:23→14:43)
[2020-05-05] MEDS ORDERED: Bupivacaine 0.5% SDV PF 30ML VIAL ONE (14:43)
[2020-05-05] MEDS ORDERED: fentaNYL 100 mcg/2 ml 50 MCG/ML VIAL IV PRN (16:06)
[2020-05-05] MEDS ORDERED: DiMENhydriNATE IV 50 mg/ml 1 ml VIAL IV PUSH PRN (16:06)
[2020-05-05] MEDS ORDERED: Naloxone 0.4 mg VIAL 0.4 mg/ml 1 ml VIAL IV PRN (16:06)
[2020-05-05] MEDS ORDERED: Ciprofloxacin 400mg IVPREMIX 400 MG/200 ML BAG IVPB SCH (18:00)
[2020-05-05] MEDS ORDERED: Morphine PCA LOW DOSE 1 MG/ML 30 ML SYRINGE PCA SCH (18:00)
[2020-05-05 18:03] LABS: Hematocrit 37 % (35-47); Hemoglobin 12.4 g/dL (12.0-16.0); Mean Corpuscular HGB Conc 33 g/dL (31-36); Mean Corpuscular Hemoglobin 33 pg (27-31); Mean Corpuscular Volume 98 fL (80-97); Mean Platelet Volume 8.9 fL (7.4-10.4); Platelet Count 182 10^3/uL (150-450); Red Blood Count 3.81 10^6 /uL (3.70-4.87); Red Cell Distribution Width 14 % (10-15); White Blood Count 13.6 10^3/uL (3.5-10.8)
[2020-05-05 18:21] LABS: BUN/Creatinine Ratio 28.2 (8-20); Blood Urea Nitrogen 20 mg/dL (6-24); CO2 Carbon Dioxide 21 mmol/L (22-32); Calcium 7.2 mg/dL (8.6-10.3); EGFR African American 96.6 (>60); EGFR Non-African American 79.8 (>60); Glucose 138 mg/dL (70-100); Potassium 4.2 mmol/L (3.5-5.0); Sodium 143 mmol/L (135-145)
[2020-05-05 18:23] LABS: Anion Gap 5 mmol/L (2-11); Chloride 117 mmol/L (101-111)
[2020-05-05] MEDS ORDERED: Naloxone 0.4 mg VIAL 0.4 mg/ml 1 ml VIAL ONE (18:38)
[2020-05-05 18:39] LABS: ABS Lymphocytes 0.2 10^3/ul (1.0-4.8); ABS Monocytes 0.7 10^3/ul (0-0.8); ABS Neutrophils 12.7 10^3/ul (1.5-7.7); Lymphocyte % 1.8 %
[2020-05-05] MEDS ORDERED: Morphine PCA* 150 MG in PREMIX PCA SCH (19:00)
[2020-05-05] MEDS ORDERED: D5W 1/2 NS KCl 20 meq 1000 ml 1,000 ML IV SCH (19:00)
[2020-05-05 19:06] LABS: Magnesium 1.7 mg/dL (1.9-2.7)
[2020-05-05 19:17] LABS: Troponin I 0.31 ng/mL (<0.03)
[2020-05-05] MEDS ORDERED: Lactated Ringers 1000 ml BAG 1,000 ML IV ONE (20:21)
[2020-05-05] MEDS ORDERED: Enoxaparin 40 MG/0.4 ML SYR SUBCUT SCH (21:00)
[2020-05-05] MEDS: metroNIDAZOLE IV 500 MG/100ML 500 MG/100 ML BAG IVPB SCH (21:09)
[2020-05-05 21:31] LABS: Troponin I 0.28 ng/mL (<0.03)
[2020-05-05] MEDS ORDERED: Calcium Gluconate 2 GM in NS 0.9% 100 ml BAG 100 ML IVPB ONE (21:48)
[2020-05-05] MEDS ORDERED: Magnesium Sulfate 2 gm BAG 2 GM/50 ML BAG IVPB ONE (21:48)
[2020-05-05] MEDS: Lactated Ringers 1000 ml BAG 1,000 ML IV ONE (23:30)
[2020-05-06] MEDS ORDERED: Lactated Ringers 1000 ml BAG 1,000 ML IV ONE (00:26)
[2020-05-06] MEDS: metroNIDAZOLE IV 500 MG/100ML 500 MG/100 ML BAG IVPB SCH ×4 (00:55→17:23)
[2020-05-06] MEDS: Lactated Ringers 1000 ml BAG 1,000 ML IV ONE (01:32)
[2020-05-06 05:37] LABS: ABS Lymphocytes 0.3 10^3/ul (1.0-4.8); ABS Monocytes 0.5 10^3/ul (0-0.8); ABS Neutrophils 11.6 10^3/ul (1.5-7.7); Hematocrit 34 % (35-47); Hemoglobin 11.2 g/dL (12.0-16.0); Lymphocyte % 2.4 %; Mean Corpuscular HGB Conc 34 g/dL (31-36); Mean Corpuscular Hemoglobin 33 pg (27-31); Mean Corpuscular Volume 98 fL (80-97); Mean Platelet Volume 8.8 fL (7.4-10.4); Platelet Count 203 10^3/uL (150-450); Red Blood Count 3.44 10^6 /uL (3.70-4.87); Red Cell Distribution Width 14 % (10-15); White Blood Count 12.5 10^3/uL (3.5-10.8)
[2020-05-06 06:03] LABS: BUN/Creatinine Ratio 27.9 (8-20); EGFR African American 101.5 (>60); EGFR Non-African American 83.9 (>60); Magnesium 2.2 mg/dL (1.9-2.7); Potassium 4.3 mmol/L (3.5-5.0)
[2020-05-06] MEDS ORDERED: D5W 1/2 NS KCl 20 meq 1000 ml 1,000 ML IV SCH (08:00)
[2020-05-06] MEDS: Enoxaparin 40 MG/0.4 ML SYR SUBCUT SCH (08:38)
[2020-05-06] MEDS: Ciprofloxacin 400mg IVPREMIX 400 MG/200 ML BAG IVPB SCH ×2 (08:39→21:00)
[2020-05-06] MEDS: Lactated Ringers 1000 ml BAG 1,000 ML IV SCH ×3 (10:25→22:13)
[2020-05-06] MEDS ORDERED: Lactated Ringers 500 ml BAG 500 ML IV SCH (18:00)
[2020-05-06] MEDS ORDERED: Lactated Ringers 1000 ml BAG 500 ML IV SCH (20:00)
[2020-05-07] MEDS: metroNIDAZOLE IV 500 MG/100ML 500 MG/100 ML BAG IVPB SCH ×4 (00:34→17:26)
[2020-05-07] MEDS ORDERED: Influenza VAC *QUAD* 2020-21* 0.5 ML SYRINGE IM ONE (09:00)
[2020-05-07] MEDS: Enoxaparin 40 MG/0.4 ML SYR SUBCUT SCH (09:31)
[2020-05-07] MEDS: Ciprofloxacin 400mg IVPREMIX 400 MG/200 ML BAG IVPB SCH ×2 (09:31→21:29)
[2020-05-07] MEDS ORDERED: Lactated Ringers 1000 ml BAG 1,000 ML IV SCH (09:39)
[2020-05-07 10:04] LABS: Hematocrit 32 % (35-47); Hemoglobin 10.7 g/dL (12.0-16.0); Mean Corpuscular HGB Conc 33 g/dL (31-36); Mean Corpuscular Hemoglobin 33 pg (27-31); Mean Corpuscular Volume 98 fL (80-97); Mean Platelet Volume 8.2 fL (7.4-10.4); Platelet Count 236 10^3/uL (150-450); Red Blood Count 3.28 10^6 /uL (3.70-4.87); Red Cell Distribution Width 14 % (10-15); White Blood Count 12.5 10^3/uL (3.5-10.8)
[2020-05-07 10:21] LABS: BUN/Creatinine Ratio 29.2 (8-20); EGFR Non-African American 78.5 (>60); Potassium 3.7 mmol/L (3.5-5.0)
[2020-05-07 10:32] LABS: ABS Lymphocytes 0.7 10^3/ul (1.0-4.8); ABS Monocytes 1.1 10^3/ul (0-0.8); ABS Neutrophils 10.7 10^3/ul (1.5-7.7); Lymphocyte % 5.3 %; Nucleated Red Blood Cells % 0.2
[2020-05-08] MEDS: metroNIDAZOLE IV 500 MG/100ML 500 MG/100 ML BAG IVPB SCH ×4 (02:41→19:37)
[2020-05-08 05:39] LABS: Hematocrit 31 % (35-47); Hemoglobin 10.4 g/dL (12.0-16.0); Mean Corpuscular HGB Conc 34 g/dL (31-36); Mean Corpuscular Hemoglobin 33 pg (27-31); Mean Corpuscular Volume 97 fL (80-97); Mean Platelet Volume 7.9 fL (7.4-10.4); Platelet Count 229 10^3/uL (150-450); Red Blood Count 3.14 10^6 /uL (3.70-4.87); Red Cell Distribution Width 13 % (10-15); White Blood Count 8.1 10^3/uL (3.5-10.8)
[2020-05-08 05:58] LABS: BUN/Creatinine Ratio 22.6 (8-20); Calcium 7.6 mg/dL (8.6-10.3); EGFR African American 112.9 (>60); EGFR Non-African American 93.3 (>60); Potassium 3.6 mmol/L (3.5-5.0)
[2020-05-08] MEDS: Ciprofloxacin 400mg IVPREMIX 400 MG/200 ML BAG IVPB SCH ×2 (08:31→21:35)
[2020-05-08] MEDS: Enoxaparin 40 MG/0.4 ML SYR SUBCUT SCH (08:34)
[2020-05-08] MEDS ORDERED: Furosemide 20 mg/2 ml IV VIAL IV SLOW PU ONE (11:58)
[2020-05-09] MEDS: metroNIDAZOLE IV 500 MG/100ML 500 MG/100 ML BAG IVPB SCH (03:13)
[2020-05-09 05:47] LABS: Hematocrit 35 % (35-47); Hemoglobin 11.6 g/dL (12.0-16.0); Mean Corpuscular HGB Conc 33 g/dL (31-36); Mean Corpuscular Hemoglobin 32 pg (27-31); Mean Corpuscular Volume 96 fL (80-97); Mean Platelet Volume 7.8 fL (7.4-10.4); Platelet Count 288 10^3/uL (150-450); Red Blood Count 3.62 10^6 /uL (3.70-4.87); Red Cell Distribution Width 14 % (10-15); White Blood Count 9.3 10^3/uL (3.5-10.8)
[2020-05-09 05:59] LABS: Calcium 7.7 mg/dL (8.6-10.3); Potassium 3.2 mmol/L (3.5-5.0)
[2020-05-09 06:05] LABS: BUN/Creatinine Ratio 14.3 (8-20); EGFR African American 110.9 (>60); EGFR Non-African American 91.6 (>60)
[2020-05-09] MEDS ORDERED: Potassium Chlor 20 meq TAB.ER PO ONE (07:08)
[2020-05-09 07:53] VITALS: BP 114/74
[2020-05-09] MEDS: Enoxaparin 40 MG/0.4 ML SYR SUBCUT SCH (08:26)
== END 2020-05-09 10:55 | disposition home or self-care (01) | DRG 330 ==
LOC: ED 23:18 → MED 23:18 → ICU 05-05 19:40 → SSU 05-06 09:52
PROVIDERS: ADMIT Hospitalist; ATTEND Surgery Surgical Critical Care

== ENCOUNTER 2022-03-23 09:26 | Inpatient (IN) ==
[2022-03-23] MEDS ORDERED: Ondansetron 4 mg VIAL 2 MG/ML 2 ml VIAL IV ONE (09:54)
[2022-03-23] MEDS ORDERED: Lactated Ringers 1000 ml BAG 1,000 ML IV ONE (09:54)
[2022-03-23 10:47] LABS: ABS Lymphocytes 0.6 10^3/ul (1.0-4.8); ABS Monocytes 0.7 10^3/ul (0-0.8); ABS Neutrophils 6.4 10^3/ul (1.5-7.7); Hematocrit 35 % (35-47); Hemoglobin 11.7 g/dL (12.0-16.0); Lymphocyte % 7.4 %; Mean Corpuscular HGB Conc 33 g/dL (31-36); Mean Corpuscular Hemoglobin 32 pg (27-31); Mean Corpuscular Volume 97 fL (80-97); Mean Platelet Volume 6.9 fL (7.4-10.4); Platelet Count 418 10^3/uL (150-450); Red Blood Count 3.65 10^6 /uL (3.70-4.87); Red Cell Distribution Width 14 % (10-15); White Blood Count 7.7 10^3/uL (3.5-10.8)
[2022-03-23 11:42] LABS: Albumin 4.5 g/dL (3.2-5.2); Calcium 9.8 mg/dL (8.6-10.3); Globulin 2.3 g/dL (2-4); Potassium 3.7 mmol/L (3.5-5.0); Total Bilirubin 0.5 mg/dL (0.2-1.0); Total Protein 6.8 g/dL (6.4-8.9); eGFR CKD-EPI 78.9 (>60)
[2022-03-23] MEDS ORDERED: Iodixanol (CONTRAST) 320 MG/ML 100 ML SDV IV ONE (11:47)
[2022-03-23] MEDS: Ondansetron 4 mg VIAL 2 MG/ML 2 ml VIAL IV PRN ×2 (13:25→21:16)
[2022-03-23] MEDS ORDERED: NS 0.9% 1000 ml BAG 1,000 ML IV SCH (15:00)
[2022-03-23] MEDS: Enoxaparin 40 MG/0.4 ML SYR SUBCUT SCH (17:50)
[2022-03-24 05:16] LABS: ABS Lymphocytes 0.6 10^3/ul (1.0-4.8); ABS Neutrophils 11.3 10^3/ul (1.5-7.7); Hematocrit 37 % (35-47); Hemoglobin 12.3 g/dL (12.0-16.0); Lymphocyte % 4.8 %; Mean Corpuscular HGB Conc 33 g/dL (31-36); Mean Corpuscular Hemoglobin 32 pg (27-31); Mean Corpuscular Volume 96 fL (80-97); Mean Platelet Volume 7.3 fL (7.4-10.4); Platelet Count 417 10^3/uL (150-450); Red Blood Count 3.84 10^6 /uL (3.70-4.87); Red Cell Distribution Width 14 % (10-15)
[2022-03-24 05:33] LABS: Calcium 9.4 mg/dL (8.6-10.3); Magnesium 1.8 mg/dL (1.9-2.7); Potassium 3.5 mmol/L (3.5-5.0); eGFR CKD-EPI 66.3 (>60)
[2022-03-24] MEDS ORDERED: Magnesium Sulfate 2 gm BAG 2 GM/50 ML BAG IVPB ONE (07:21)
[2022-03-24] MEDS: NS 0.9% 1000 ml BAG 1,000 ML IV SCH ×2 (11:17→23:41)
[2022-03-24] MEDS: Ondansetron 4 mg VIAL 2 MG/ML 2 ml VIAL IV PRN (11:23)
[2022-03-24] MEDS: Enoxaparin 40 MG/0.4 ML SYR SUBCUT SCH (15:14)
[2022-03-24] MEDS: PTO: Imatinib 400 mg TAB (NF) PO SCH (22:27)
[2022-03-25] MEDS ORDERED: NS 0.9% 1000 ml BAG 1,000 ML IV SCH (00:01)
[2022-03-25 07:55] LABS: ABS Lymphocytes 1.4 10^3/ul (1.0-4.8); ABS Monocytes 0.7 10^3/ul (0-0.8); ABS Neutrophils 6.3 10^3/ul (1.5-7.7); Eosinophil % 0.1 %; Hematocrit 33 % (35-47); Lymphocyte % 16.5 %; Mean Corpuscular HGB Conc 34 g/dL (31-36); Mean Corpuscular Hemoglobin 33 pg (27-31); Mean Corpuscular Volume 97 fL (80-97); Mean Platelet Volume 7.2 fL (7.4-10.4); Nucleated Red Blood Cells % 0.1; Platelet Count 346 10^3/uL (150-450); Red Blood Count 3.39 10^6 /uL (3.70-4.87); Red Cell Distribution Width 14 % (10-15); White Blood Count 8.4 10^3/uL (3.5-10.8)
[2022-03-25 07:59] LABS: Calcium 8.7 mg/dL (8.6-10.3); Magnesium 2.2 mg/dL (1.9-2.7); Potassium 3.5 mmol/L (3.5-5.0); eGFR CKD-EPI 77.7 (>60)
[2022-03-25] MEDS: NS 0.9% 1000 ml BAG 1,000 ML IV SCH (10:26)
[2022-03-25] MEDS ORDERED: Diatrizoate Meg/Sod(CONTRAST) 30 ML ORAL.SOLN ONE (11:05)
[2022-03-25] MEDS ORDERED: Diatrizoate Meg/Sod(CONTRAST) 30 ML ORAL.SOLN PO ONE (11:15)
[2022-03-25] MEDS: Enoxaparin 40 MG/0.4 ML SYR SUBCUT SCH (14:57)
[2022-03-25] MEDS: PTO: Imatinib 400 mg TAB (NF) PO SCH (22:12)
[2022-03-26] MEDS: NS 0.9% 1000 ml BAG 1,000 ML IV SCH (07:15)
[2022-03-26] MEDS: Enoxaparin 40 MG/0.4 ML SYR SUBCUT SCH (15:21)
[2022-03-26] MEDS ORDERED: PTO: Imatinib 400 mg TAB (NF) PO SCH (18:00)
[2022-03-27 11:13] VITALS: BP 114/66
== END 2022-03-27 12:10 | disposition home or self-care (01) | DRG 390 ==
LOC: ED 09:26 → EDHOLD 13:52 → SUATTDRO 13:52 → SSU 18:43
PROVIDERS: ADMIT Family Medicine; ATTEND Student in an Organized Health Care Education/Training Program

== ENCOUNTER 2023-01-06 05:38 | Observation (INO) ==
[~2023-01-06 05:38] MED LIST: Tranexamic Acid 1,000 MG/10 ML 1,000 MG in NS 0.9% 50 ML 50 ML IV SCH
[2023-01-06] MEDS ORDERED: Buffered Lidocaine 1% SYRIN 1 ml INTRADERM ONE (06:00)
[2023-01-06] MEDS ORDERED: Lactated Ringers 1000 ml BAG 1,000 ML IV SCH (06:00)
[2023-01-06] MEDS ORDERED: ceFAZolin 2 GM in NS PREMIX 2 GM/100 ML BAG IVPB ONE (06:10)
[2023-01-06] MEDS ORDERED: Lidocaine 2% PF 5 ML VIAL ONE (06:20)
[2023-01-06] MEDS ORDERED: Phenylephrine IV 10 MG/ML 1 ml VIAL ONE (06:20)
[2023-01-06] MEDS ORDERED: Midazolam 2 mg/2 ml VIAL 1 mg/ml 2 ml VIAL (2 mg) ONE (06:26)
[2023-01-06] MEDS ORDERED: fentaNYL 100 mcg/2 ml 50 MCG/ML VIAL ONE (06:26)
[2023-01-06 06:35] LABS: Rapid COVID-19 Molecular Undetected (Undetected)
[2023-01-06] MEDS ORDERED: ROPIVACAINE 5 MG/ML 30 ML BTL (0.5%) ONE (06:49)
[2023-01-06] MEDS ORDERED: Naloxone 0.4 mg VIAL 0.4 mg/ml 1 ml VIAL IV PRN (08:16)
[2023-01-06] MEDS ORDERED: Ketamine HCL 50 mg/ml 10 ml VIAL (500 MG) ONE (08:19)
[2023-01-06] MEDS ORDERED: Glycopyrrolate IV 0.2 MG/ML 1 ML VIAL ONE (08:19)
[2023-01-06] MEDS ORDERED: Ondansetron 4 mg VIAL 2 MG/ML 2 ml VIAL ONE (08:22)
[2023-01-06] MEDS ORDERED: Dexamethasone IV 4 MG/ML VIAL 1 ml VIAL ONE (08:22)
[2023-01-06] MEDS ORDERED: Acetaminophen IV 1 GM/100ML 1,000 MG/100 ML BAG IV ONE (08:22)
[2023-01-06] MEDS ORDERED: Morphine 2 MG/ML SYRINGE IV PRN (08:35)
[2023-01-06] MEDS ORDERED: Magnesium Hydroxide LIQ 30 ML UDC PO PRN (08:35)
[2023-01-06] MEDS ORDERED: Ondansetron 4 mg VIAL 2 MG/ML 2 ml VIAL IV PRN (08:35)
[2023-01-06] MEDS ORDERED: Ondansetron ODT 4 mg TAB 4 MG TAB PO PRN (08:35)
[2023-01-06] MEDS ORDERED: Lactulose 30 ml UDC PO PRN (08:35)
[2023-01-06] MEDS ORDERED: HYDROmorphone 1 MG/1 ML SYRINGE ONE (11:19)
[2023-01-06] MEDS: HYDROmorphone 1 MG/1 ML SYRINGE IV PRN ×2 (11:20→11:28)
[2023-01-06] MEDS: Lactated Ringers 1000 ml BAG 1,000 ML IV SCH ×2 (12:25→22:53)
[2023-01-06] MEDS: Magnesium Hydroxide LIQ 30 ML UDC PO SCH ×2 (13:06→19:51)
[2023-01-06] MEDS: Vitamin THERAPEUTIC TAB PO SCH (13:07)
[2023-01-06] MEDS: ceFAZolin 1 GM ADVAN 1 GM in NS 0.9% 50 ML 50 ML IVPB SCH ×2 (16:13→23:40)
[2023-01-06] MEDS ORDERED: Imatinib 400 mg TAB (NF) PO SCH (18:00)
[2023-01-07 06:38] LABS: Hematocrit 28.3 % (35-45); Hemoglobin 9.9 g/dL (11.5-14.3); Mean Platelet Volume 8.4 fL (7.5-11.2); Platelet Count 181 10^3/uL (150-450)
[2023-01-07 06:59] LABS: Calcium 8.7 mg/dL (8.6-10.3); Creatinine, Serum 0.9 mg/dL (0.51-0.95); Potassium 4.9 mmol/L (3.5-5.0)
[2023-01-07] MEDS: ceFAZolin 1 GM ADVAN 1 GM in NS 0.9% 50 ML 50 ML IVPB SCH (08:26)
[2023-01-07] MEDS: Vitamin THERAPEUTIC TAB PO SCH (08:27)
[2023-01-07] MEDS: Magnesium Hydroxide LIQ 30 ML UDC PO SCH (08:28)
[2023-01-07] MEDS ORDERED: Cholecalciferol (VIT D3) 1,000 unit TAB PO SCH (09:00)
[2023-01-07 10:12] VITALS: BP 128/71
== END 2023-01-07 12:30 | disposition home or self-care (01) ==
LOC: INTOOBSV 05:38 → AA 05:38 → SSU 08:35
PROVIDERS: ADMIT Orthopaedic Surgery Adult Reconstructive Orthopaedic Surgery; ATTEND Orthopaedic Surgery Adult Reconstructive Orthopaedic Surgery